=== PATIENT | male | born 1950 | race Two or more races ===

== ENCOUNTER 2022-11-24 11:33 | Emergency (ER) | payer OTHER ==
[~2022-11-24] VITALS: Ht 180.3 cm; Wt 90.3 kg
[~2022-11-24 11:33] MED LIST: ASA81 MG PO; CIPRO500 MG PO; DIOVAN320 MG PO; FLAGYL500MG PO; NORVASC10 MG PO; TOPROL XL50 M1 PO
[2022-11-24] MEDS ORDERED: PROTONIX40 MG PO (13:38)
[2022-11-24] MEDS ORDERED: LEVSIN/SL0.125 MG SL (13:38)
[2022-11-24] MEDS ORDERED: CIPRO500 MG PO (13:38)
[2022-11-24] MEDS ORDERED: METRONIDAZOLE500 MG PO (13:38)
== END 2022-11-24 14:43 | disposition home or self-care (01) ==
LOC: ER 11:33
DX: K57.92 Diverticulitis of intestine, part unspecified, without perforation or abscess without bleeding (principal)

== ENCOUNTER 2023-01-04 18:58 | Inpatient (IN) | payer OTHER ==
[~2023-01-04] VITALS: Ht 182.9 cm; Wt 103.0 kg
[~2023-01-04 18:58] MED LIST changes: +LEVSIN/SL0.125 MG SL; +METRONIDAZOLE500 MG PO; +PROTONIX40 MG PO
[2023-01-04] MEDS ORDERED: HYDRALAZINE HCL50 MG (19:17)
[2023-01-04] MEDS ORDERED: WELLBUTRIN XL300 MG (19:18)
[2023-01-04] MEDS ORDERED: LEXAPRO20 MG (19:18)
[2023-01-04] MEDS ORDERED: TOPAMAX15 MG (19:18)
[2023-01-04] MEDS ORDERED: XARELTO20 MG (19:18)
[2023-01-06] MEDS ORDERED: ISOSORBIDE MONO30 M2 (08:29)
[2023-01-06] MEDS ORDERED: IRBESARTAN300 MG (08:29)
== END 2023-01-09 18:27 | disposition home or self-care (01) | DRG 392 ==
LOC: ER 18:58 → MEDI 01-05 09:37 → SEC-K 01-05 09:37 → MEDI 01-05 10:10
PROVIDERS: ADMIT Internal Medicine; ATTEND Internal Medicine
PROC: BW21ZZZ Computerized Tomography (CT Scan) of Abdomen and Pelvis (ICD-10-PCS; 2023-01-05)
PROC: 02HV33Z Insertion of Infusion Device into Superior Vena Cava, Percutaneous Approach (ICD-10-PCS; principal; 2023-01-08)
DX: K57.32 Diverticulitis of large intestine without perforation or abscess without bleeding (principal); N39.0 Urinary tract infection, site not specified; N17.9 Acute kidney failure, unspecified; B96.20 Unspecified Escherichia coli [E. coli] as the cause of diseases classified elsewhere; B96.6 Bacteroides fragilis [B. fragilis] as the cause of diseases classified elsewhere; I44.7 Left bundle-branch block, unspecified; I10 Essential (primary) hypertension; Z85.46 Personal history of malignant neoplasm of prostate

== ENCOUNTER 2023-07-11 06:40 | Inpatient (IN) | payer OTHER ==
[~2023-07-11] VITALS: Ht 172.7 cm; Wt 113.4 kg
[~2023-07-11 06:40] MED LIST changes: +HYDRALAZINE HCL50 MG; +IRBESARTAN300 MG; +ISOSORBIDE MONO30 M2; +LEXAPRO20 MG; +TOPAMAX15 MG; +WELLBUTRIN XL300 MG; +XARELTO20 MG
[2023-07-11 09:07] LABS: HEMATOCRIT 45.1 % (39.0-48.0); HEMOGLOBIN 14.4 g/dL (13-16.00); MEAN CELL VOLUME 85.4 fL (80.0-100.00); MEAN CORPUSCULAR HEMOGLOBIN 27.2 pg (27.00-32.0); MEAN CORPUSCULAR HGB CONC 31.9 g/dl (32.0-36.0); RED BLOOD COUNT 5.29 M/uL (4.00-6.00); RED CELL DISTRIBUTION WIDTH 16.8 % (11.5-14.5)
[2023-07-11 09:28] LABS: ALBUMIN 2.6 gm/dL (3.4-5.0); BILIRUBIN TOTAL 2.43 mg/dL (0.3-1.2); CALCIUM 9.8 mg/dL (8.5-10.1); CREATININE SERUM 2.01 mg/dL (0.70-1.30); GFR 32.63; GLOBULINA 3.1 G/DL (2.4-3.5); POTASSIUM 3.31 mEq/L (3.5-5.1); TOTAL PROTEIN 5.7 gm/dL (6.4-8.2)
[2023-07-11 09:33] LABS: ABG PH 7.477 (7.35-7.45); ABG pCO2 23.9 mmHg (35-45); BASE EXCESS -4.2 mmol/l; BICARBONATE 17.3 mmol/l (23-25); SaO2 85.9 %; allen test SATISFACTORY; o2 21 %; puncture site RADIAL LEFT
[2023-07-11 09:34] LABS: ABG PO2 47.6 mmHg (80-100)
[2023-07-11 09:54] LABS: PLATELET COUNT 124 K/uL (150-450)
[2023-07-11 11:30] LABS: INR 1.31; PARTIAL THROMBOPLASTIN TIME 27.3 SECONDS (22.0-34.0); PROTHROMBIN TIME 13.5 SECONDS (9.0-11.5)
[2023-07-11 13:43] LABS: URINE APPEARANCE Cloudy; URINE BILIRRUBIN Small (NEGATIVE); URINE BLOOD Large; URINE COLOR Orange; URINE GLUCOSE Negative (NEGATIVE); URINE LEUKOCYTE Moderate; URINE NITRATE Negative
[2023-07-11 13:47] LABS: URINE EPITHELIAL CELLS 2.7 uL (0.0-38.8); URINE WBC 532.1 uL (0.0-23.2)
[2023-07-11 13:48] LABS: URINE BACTERIA > 9821.5 uL (0.0-1933); URINE PROTEIN 300 (NEGATIVE)
[2023-07-11 17:57] LABS: ABG PH 7.429 (7.35-7.45); ABG pCO2 30.6 mmHg (35-45)
[2023-07-11 17:59] LABS: ABG PO2 57.1 mmHg (80-100); BASE EXCESS -3.3 mmol/l; BICARBONATE 19.8 mmol/l (23-25); SaO2 89.9 %; Tco2 20.7 mmol/l; allen test SATISFACTORY; o2 21 %; puncture site RADIAL RIGHT
[2023-07-11 22:37] LABS: ABG PH 7.334 (7.35-7.45); BASE EXCESS -6.7 mmol/l; BICARBONATE 18.2 mmol/l (23-25); SaO2 99.7 %; Tco2 19.3 mmol/l
[2023-07-11 23:21] LABS: allen test SATISFACTORY; o2 100 %; puncture site RADIAL RIGHT
[2023-07-12 06:30] LABS: ABG PH 7.376 (7.35-7.45); ABG PO2 237.1 mmHg (80-100); ABG pCO2 30.9 mmHg (35-45); BASE EXCESS -6.2 mmol/l; BICARBONATE 17.7 mmol/l (23-25); SaO2 99.8 %; Tco2 18.6 mmol/l
[2023-07-12 07:21] LABS: INR 1.6
[2023-07-12 07:27] LABS: HEMOGLOBIN 12.2 g/dL (13-16.00); MEAN CELL VOLUME 85.1 fL (80.0-100.00); MEAN CORPUSCULAR HEMOGLOBIN 27.4 pg (27.00-32.0); MEAN CORPUSCULAR HGB CONC 32.1 g/dl (32.0-36.0); RED BLOOD COUNT 4.46 M/uL (4.00-6.00); RED CELL DISTRIBUTION WIDTH 17.2 % (11.5-14.5)
[2023-07-12 07:28] LABS: URINE APPEARANCE Turbid; URINE BILIRRUBIN Moderate (NEGATIVE); URINE BLOOD Large; URINE COLOR Orange; URINE GLUCOSE Negative (NEGATIVE); URINE LEUKOCYTE Large; URINE NITRATE Positive
[2023-07-12 07:30] LABS: PLATELET COUNT 121 K/uL (150-450)
[2023-07-12 07:31] LABS: URINE RBC 5498.4 uL (0.0-20.8)
[2023-07-12 07:45] LABS: ALBUMIN 2.1 gm/dL (3.4-5.0); BILIRUBIN TOTAL 0.74 mg/dL (0.3-1.2); CALCIUM 7.8 mg/dL (8.5-10.1); CREATININE SERUM 3.41 mg/dL (0.70-1.30); GFR 17.73; GLOBULINA 2.5 G/DL (2.4-3.5); POTASSIUM 4.48 mEq/L (3.5-5.1); TOTAL PROTEIN 4.6 gm/dL (6.4-8.2)
[2023-07-12 07:54] LABS: PROTHROMBIN TIME 16.2 SECONDS (9.0-11.5)
[2023-07-12 08:08] LABS: allen test SATISFACTORY; o2 70 %; puncture site RADIAL RIGHT
[2023-07-12 08:30] LABS: URINE BACTERIA > 9821.5 uL (0.0-1933); URINE EPITHELIAL CELLS > 201.7 uL (0.0-38.8); URINE PROTEIN 300 (NEGATIVE); URINE WBC > 5548.3 uL (0.0-23.2)
[2023-07-12 11:10] LABS: ABG PH 7.429 (7.35-7.45); ABG PO2 77.7 mmHg (80-100); ABG pCO2 25.4 mmHg (35-45); BICARBONATE 16.4 mmol/l (23-25); SaO2 95.5 %; Tco2 17.2 mmol/l
[2023-07-12 11:12] LABS: allen test SATISFACTORY; o2 50 %; puncture site RADIAL RIGHT
[2023-07-13 06:57] LABS: HEMATOCRIT 37.3 % (39.0-48.0); HEMOGLOBIN 11.9 g/dL (13-16.00); MEAN CELL VOLUME 84.9 fL (80.0-100.00); MEAN CORPUSCULAR HEMOGLOBIN 27.1 pg (27.00-32.0); PLATELET COUNT 91 K/uL (150-450); RED BLOOD COUNT 4.39 M/uL (4.00-6.00); RED CELL DISTRIBUTION WIDTH 17.2 % (11.5-14.5)
[2023-07-13 07:35] LABS: BILIRUBIN TOTAL 0.72 mg/dL (0.3-1.2); CALCIUM 8.6 mg/dL (8.5-10.1); CREATININE SERUM 2.18 mg/dL (0.70-1.30); GFR 29.72; GLOBULINA 2.5 G/DL (2.4-3.5); POTASSIUM 3.98 mEq/L (3.5-5.1); TOTAL PROTEIN 4.5 gm/dL (6.4-8.2)
[2023-07-16 06:50] LABS: HEMATOCRIT 36.5 % (39.0-48.0); HEMOGLOBIN 11.9 g/dL (13-16.00); MEAN CELL VOLUME 84.7 fL (80.0-100.00); MEAN CORPUSCULAR HEMOGLOBIN 27.6 pg (27.00-32.0); MEAN CORPUSCULAR HGB CONC 32.6 g/dl (32.0-36.0); RED BLOOD COUNT 4.31 M/uL (4.00-6.00); RED CELL DISTRIBUTION WIDTH 16.7 % (11.5-14.5)
[2023-07-16 06:59] LABS: PLATELET COUNT 107 K/uL (150-450)
[2023-07-16 07:01] LABS: BILIRUBIN TOTAL 0.52 mg/dL (0.3-1.2); CALCIUM 8.9 mg/dL (8.5-10.1); CREATININE SERUM 1.01 mg/dL (0.70-1.30); GFR 72.21; GLOBULINA 2.5 G/DL (2.4-3.5); POTASSIUM 4.1 mEq/L (3.5-5.1); TOTAL PROTEIN 4.5 gm/dL (6.4-8.2)
[2023-07-16] MEDS ORDERED: TAMS0.4C PO (14:55)
[2023-07-16] MEDS ORDERED: ISOSORBIDE MONO30 MG PO (14:56)
[2023-07-16] MEDS ORDERED: TOPROL XL25 M1 PO (14:56)
[2023-07-16] MEDS ORDERED: AVAPRO300 MG PO (14:56)
[2023-07-16] MEDS ORDERED: WELLBUTRIN XL300 MG PO (14:57)
[2023-07-16] MEDS ORDERED: HYDRALAZINE HCL50 MG PO (14:57)
[2023-07-16] MEDS ORDERED: PROTONIX40 MG PO (14:58)
[2023-07-16] MEDS ORDERED: LEXAPRO20 MG PO (14:58)
[2023-07-16] MEDS ORDERED: FINASTERIDE5 MG PO (14:58)
[2023-07-17 08:22] LABS: ABG PH 7.449 (7.35-7.45); ABG PO2 80.8 mmHg (80-100); ABG pCO2 32.2 mmHg (35-45); BASE EXCESS -1.2 mmol/l; SaO2 96.4 %
[2023-07-17 08:23] LABS: BICARBONATE 21.8 mmol/l (23-25); Tco2 22.8 mmol/l; allen test SATISFACTORY; o2 21 %; puncture site RADIAL RIGHT
[2023-07-20 06:31] LABS: PH,URINE 5.5 (5.0-8.0); URINE APPEARANCE Clear; URINE BILIRRUBIN Negative (NEGATIVE); URINE BLOOD Large; URINE COLOR Yellow; URINE GLUCOSE Negative (NEGATIVE); URINE LEUKOCYTE Negative; URINE NITRATE Negative; URINE PROTEIN Trace (NEGATIVE); URINE UROBILINOGEN 0.2 E.U./dl
[2023-07-20 06:36] LABS: URINE BACTERIA 56.7 uL (0.0-1933); URINE EPITHELIAL CELLS 6.9 uL (0.0-38.8); URINE RBC 551.4 uL (0.0-20.8); URINE WBC 22.6 uL (0.0-23.2)
[2023-07-21] MEDS ORDERED: CARDURA1 MG PO (15:52)
== END 2023-07-21 21:29 | disposition home or self-care (01) | DRG 871 ==
LOC: ER 06:40 → ICU-2 16:39 → O/R 07-12 07:26 → ICU 07-12 21:01 → MEDJ 07-14 18:14
PROVIDERS: General Practice; Internal Medicine; Internal Medicine Pulmonary Disease; Specialist; Student in an Organized Health Care Education/Training Program; Urology; ADMIT Internal Medicine; ATTEND Internal Medicine
PROC: 3E0K8GC Introduction of Other Therapeutic Substance into Genitourinary Tract, Via Natural or Artificial Opening Endoscopic (ICD-10-PCS; 2023-07-11)
PROC: 0T7D8DZ Dilation of Urethra with Intraluminal Device, Via Natural or Artificial Opening Endoscopic (ICD-10-PCS; 2023-07-11)
PROC: 0BH18EZ Insertion of Endotracheal Airway into Trachea, Via Natural or Artificial Opening Endoscopic (ICD-10-PCS; 2023-07-11)
PROC: 5A1935Z Respiratory Ventilation, Less than 24 Consecutive Hours (ICD-10-PCS; 2023-07-11)
PROC: 0TJB8ZZ Inspection of Bladder, Via Natural or Artificial Opening Endoscopic (ICD-10-PCS; principal; 2023-07-11 18:00)
DX: A41.9 Sepsis, unspecified organism (principal); R65.21 Severe sepsis with septic shock; N20.1 Calculus of ureter; N39.0 Urinary tract infection, site not specified; N17.9 Acute kidney failure, unspecified; J98.11 Atelectasis; K57.90 Diverticulosis of intestine, part unspecified, without perforation or abscess without bleeding; I10 Essential (primary) hypertension; R79.89 Other specified abnormal findings of blood chemistry; B96.20 Unspecified Escherichia coli [E. coli] as the cause of diseases classified elsewhere; R09.02 Hypoxemia

== ENCOUNTER 2023-08-09 14:48 | Inpatient (IN) | payer OTHER ==
[~2023-08-09] VITALS: Ht 182.9 cm; Wt 99.8 kg
[~2023-08-09 14:48] MED LIST changes: +AVAPRO300 MG PO; +CARDURA1 MG PO; +FINASTERIDE5 MG PO; +HYDRALAZINE HCL50 MG PO; +ISOSORBIDE MONO30 MG PO; +LEXAPRO20 MG PO; +TAMS0.4C PO; +TOPROL XL25 M1 PO; +WELLBUTRIN XL300 MG PO
[2023-08-09 17:13] LABS: HEMATOCRIT 37.6 % (39.0-48.0); HEMOGLOBIN 12.1 g/dL (13-16.00); MEAN CORPUSCULAR HEMOGLOBIN 27.4 pg (27.00-32.0); MEAN CORPUSCULAR HGB CONC 32.3 g/dl (32.0-36.0); PLATELET COUNT 133 K/uL (150-450); RED BLOOD COUNT 4.43 M/uL (4.00-6.00); RED CELL DISTRIBUTION WIDTH 17.4 % (11.5-14.5)
[2023-08-09 17:27] LABS: ALBUMIN 2.5 gm/dL (3.4-5.0); BILIRUBIN TOTAL 1.29 mg/dL (0.3-1.2); CALCIUM 9.6 mg/dL (8.5-10.1); CREATININE SERUM 1.2 mg/dL (0.70-1.30); GFR 59.18; GLOBULINA 2.7 G/DL (2.4-3.5); POTASSIUM 3.6 mEq/L (3.5-5.1); TOTAL PROTEIN 5.2 gm/dL (6.4-8.2)
[2023-08-09 17:29] LABS: INR 1.76
[2023-08-09 17:30] LABS: PH,URINE 5.5 (5.0-8.0); URINE APPEARANCE Turbid; URINE BILIRRUBIN Small (NEGATIVE); URINE BLOOD Large; URINE COLOR Orange; URINE GLUCOSE Negative (NEGATIVE); URINE LEUKOCYTE Large; URINE NITRATE Positive
[2023-08-09 17:33] LABS: PROTHROMBIN TIME 17.7 SECONDS (9.0-11.5)
[2023-08-09 17:33] LABS: URINE EPITHELIAL CELLS 11.2 uL (0.0-38.8)
[2023-08-09 17:34] LABS: PARTIAL THROMBOPLASTIN TIME 41.2 SECONDS (22.0-34.0)
[2023-08-09 17:35] LABS: URINE BACTERIA > 9821.5 uL (0.0-1933); URINE PROTEIN 100 (NEGATIVE); URINE RBC > 10558.9 uL (0.0-20.8)
[2023-08-09 18:00] LABS: ABG PH 7.463 (7.35-7.45); ABG PO2 74.5 mmHg (80-100); ABG pCO2 32.1 mmHg (35-45); BASE EXCESS -0.4 mmol/l; BICARBONATE 22.5 mmol/l (23-25); SaO2 95.7 %; Tco2 23.5 mmol/l; allen test SATISFACTORY; o2 21 %; puncture site RADIAL RIGHT
[2023-08-09 23:31] LABS: CHOL HDL RATIO 2.9 (0-5.0)
[2023-08-10 14:49] LABS: HEMATOCRIT 39.1 % (39.0-48.0); HEMOGLOBIN 12.8 g/dL (13-16.00); MEAN CORPUSCULAR HEMOGLOBIN 27.9 pg (27.00-32.0); MEAN CORPUSCULAR HGB CONC 32.8 g/dl (32.0-36.0); PLATELET COUNT 152 K/uL (150-450); RED CELL DISTRIBUTION WIDTH 17.7 % (11.5-14.5)
[2023-08-10 15:03] LABS: ERYTHROCYTE SEDIMENTATION RATE 33 mm/hr
[2023-08-10 15:15] LABS: ALBUMIN 2.6 gm/dL (3.4-5.0); CALCIUM 9.7 mg/dL (8.5-10.1); CREATININE SERUM 1.39 mg/dL (0.70-1.30); GFR 49.95; GLOBULINA 2.8 G/DL (2.4-3.5); POTASSIUM 3.8 mEq/L (3.5-5.1); TOTAL PROTEIN 5.4 gm/dL (6.4-8.2)
[2023-08-13 07:41] LABS: HEMATOCRIT 35.5 % (39.0-48.0); HEMOGLOBIN 11.7 g/dL (13-16.00); MEAN CELL VOLUME 83.8 fL (80.0-100.00); MEAN CORPUSCULAR HEMOGLOBIN 27.7 pg (27.00-32.0); PLATELET COUNT 134 K/uL (150-450); RED BLOOD COUNT 4.23 M/uL (4.00-6.00); RED CELL DISTRIBUTION WIDTH 17.4 % (11.5-14.5)
[2023-08-13 08:19] LABS: ALBUMIN 2.3 gm/dL (3.4-5.0); BILIRUBIN TOTAL 0.49 mg/dL (0.3-1.2); CALCIUM 9.9 mg/dL (8.5-10.1); CREATININE SERUM 0.98 mg/dL (0.70-1.30); GFR 74.77; GLOBULINA 2.6 G/DL (2.4-3.5); POTASSIUM 3.79 mEq/L (3.5-5.1); TOTAL PROTEIN 4.9 gm/dL (6.4-8.2)
[2023-08-15 11:29] LABS: URINE APPEARANCE Cloudy; URINE BILIRRUBIN Negative (NEGATIVE); URINE BLOOD Large; URINE COLOR Yellow; URINE GLUCOSE Negative (NEGATIVE); URINE LEUKOCYTE Small; URINE NITRATE Negative; URINE PROTEIN Trace (NEGATIVE); URINE UROBILINOGEN 0.2 E.U./dl
[2023-08-15 11:30] LABS: URINE BACTERIA 51.6 uL (0.0-1933); URINE EPITHELIAL CELLS 11.7 uL (0.0-38.8); URINE WBC 107.5 uL (0.0-23.2)
[2023-08-15 15:12] LABS: HEMATOCRIT 37.2 % (39.0-48.0); MEAN CELL VOLUME 85.7 fL (80.0-100.00); MEAN CORPUSCULAR HEMOGLOBIN 27.6 pg (27.00-32.0); MEAN CORPUSCULAR HGB CONC 32.2 g/dl (32.0-36.0); PLATELET COUNT 163 K/uL (150-450); RED BLOOD COUNT 4.34 M/uL (4.00-6.00); RED CELL DISTRIBUTION WIDTH 17.3 % (11.5-14.5)
[2023-08-15 15:45] LABS: ALBUMIN 2.5 gm/dL (3.4-5.0); BILIRUBIN TOTAL 0.37 mg/dL (0.3-1.2); CALCIUM 9.7 mg/dL (8.5-10.1); CREATININE SERUM 1.02 mg/dL (0.70-1.30); GFR 71.39; GLOBULINA 2.8 G/DL (2.4-3.5); POTASSIUM 3.3 mEq/L (3.5-5.1); TOTAL PROTEIN 5.3 gm/dL (6.4-8.2)
[2023-08-17 07:16] LABS: HEMATOCRIT 35.5 % (39.0-48.0); HEMOGLOBIN 11.7 g/dL (13-16.00); MEAN CELL VOLUME 85.2 fL (80.0-100.00); MEAN CORPUSCULAR HEMOGLOBIN 28.1 pg (27.00-32.0); PLATELET COUNT 166 K/uL (150-450); RED BLOOD COUNT 4.17 M/uL (4.00-6.00); RED CELL DISTRIBUTION WIDTH 17.8 % (11.5-14.5)
[2023-08-17 07:43] LABS: ALBUMIN 2.5 gm/dL (3.4-5.0); BILIRUBIN TOTAL 0.37 mg/dL (0.3-1.2); CALCIUM 10.1 mg/dL (8.5-10.1); CREATININE SERUM 0.98 mg/dL (0.70-1.30); GFR 74.77; GLOBULINA 2.9 G/DL (2.4-3.5); POTASSIUM 3.8 mEq/L (3.5-5.1); TOTAL PROTEIN 5.4 gm/dL (6.4-8.2)
[2023-08-17 07:50] LABS: ERYTHROCYTE SEDIMENTATION RATE 15 mm/hr
[2023-08-17 07:56] LABS: C-REACTIVE PROTEIN 0.29 MG/DL (0.00-0.29)
[2023-08-18 16:31] LABS: INR 1.13; PARTIAL THROMBOPLASTIN TIME 30.9 SECONDS (22.0-34.0); PROTHROMBIN TIME 11.8 SECONDS (9.0-11.5)
[2023-08-24] MEDS ORDERED: WELLBUTRIN SR100 MG PO (14:36)
== END 2023-08-21 17:16 | disposition home or self-care (01) | DRG 872 ==
LOC: ER 14:48 → MEDJ 22:31
PROVIDERS: General Practice; Internal Medicine; Internal Medicine Infectious Disease; Internal Medicine Nephrology; ADMIT Internal Medicine; ATTEND Internal Medicine
PROC: 02HV33Z Insertion of Infusion Device into Superior Vena Cava, Percutaneous Approach (ICD-10-PCS; principal; 2023-08-14)
PROC: BW21YZZ Computerized Tomography (CT Scan) of Abdomen and Pelvis using Other Contrast (ICD-10-PCS; 2023-08-14)
DX: A41.9 Sepsis, unspecified organism (principal); K57.32 Diverticulitis of large intestine without perforation or abscess without bleeding; N17.9 Acute kidney failure, unspecified; N39.0 Urinary tract infection, site not specified; N20.1 Calculus of ureter; N13.30 Unspecified hydronephrosis; G47.33 Obstructive sleep apnea (adult) (pediatric); B96.20 Unspecified Escherichia coli [E. coli] as the cause of diseases classified elsewhere; I10 Essential (primary) hypertension; Z20.822 Contact with and (suspected) exposure to COVID-19; E78.5 Hyperlipidemia, unspecified

== ENCOUNTER 2023-08-26 09:09 | Day surgery (SDC) | payer OTHER ==
[~2023-08-26 09:09] MED LIST changes: +WELLBUTRIN SR100 MG PO
== END 2023-08-26 21:30 | disposition home or self-care (01) ==
LOC: CIR.AMB 09:09
PROVIDERS: ATTEND Urology
DX: N20.1 Calculus of ureter (principal); Z20.822 Contact with and (suspected) exposure to COVID-19; E78.5 Hyperlipidemia, unspecified; I10 Essential (primary) hypertension

== ENCOUNTER 2023-11-24 15:09 | Outpatient (CLI) | payer OTHER | END 2023-11-24 15:11 | disposition home or self-care (01) | LOC: RAD 15:09 | PROVIDERS: ATTEND Urology | DX: N20.0 Calculus of kidney (principal); N20.1 Calculus of ureter; Z88.8 Allergy status to other drugs, medicaments and biological substances ==

== ENCOUNTER 2023-12-12 21:58 | Emergency (ER) | payer OTHER ==
[~2023-12-12] VITALS: Ht 182.9 cm; Wt 106.6 kg
[2023-12-12] MEDS ORDERED: ONDANSETRON HCL 2 MG/ML VIAL IV ONE (22:45)
[2023-12-12] MEDS ORDERED: FAMOTIDINE/PF 20 MG/2 ML VIAL IV ONE (22:45)
[2023-12-12] MEDS ORDERED: 0.9 % SODIUM CHLORIDE 500 ML IV SCH (22:45)
[2023-12-12 23:09] LABS: HEMATOCRIT 40.9 % (39.0-48.0); HEMOGLOBIN 13.2 g/dL (13-16.00); MEAN CELL VOLUME 79.7 fL (80.0-100.00); MEAN CORPUSCULAR HEMOGLOBIN 25.6 pg (27.00-32.0); MEAN CORPUSCULAR HGB CONC 32.1 g/dl (32.0-36.0); PLATELET COUNT 153 K/uL (150-450); RED BLOOD COUNT 5.13 M/uL (4.00-6.00)
[2023-12-12 23:11] LABS: URINE APPEARANCE Clear; URINE BILIRRUBIN Negative (NEGATIVE); URINE BLOOD Negative; URINE COLOR Yellow; URINE GLUCOSE Negative (NEGATIVE); URINE LEUKOCYTE Negative; URINE NITRATE Negative; URINE PROTEIN Negative (NEGATIVE); URINE UROBILINOGEN 0.2 E.U./dl
[2023-12-12 23:14] LABS: URINE BACTERIA 15.1 uL (0.0-1933); URINE EPITHELIAL CELLS 6.7 uL (0.0-38.8); URINE RBC 32.6 uL (0.0-20.8); URINE WBC 10.8 uL (0.0-23.2)
[2023-12-12 23:23] LABS: INR 1.13; PARTIAL THROMBOPLASTIN TIME 24.9 SECONDS (22.0-34.0); PROTHROMBIN TIME 11.8 SECONDS (9.0-11.5)
[2023-12-12 23:25] LABS: CALCIUM 9.9 mg/dL (8.5-10.1); CREATININE SERUM 1.55 mg/dL (0.70-1.30); GFR 44.05; POTASSIUM 3.67 mEq/L (3.5-5.1)
== END 2023-12-13 01:37 | disposition home or self-care (01) ==
LOC: ER 21:58
PROVIDERS: General Practice
DX: K30 Functional dyspepsia (principal); R11.10 Vomiting, unspecified; R10.9 Unspecified abdominal pain; I10 Essential (primary) hypertension; Z88.8 Allergy status to other drugs, medicaments and biological substances
CPT/HCPCS: 36415; 74176; 96365; 96366; 99284; J2405; J3490; J7042

== ENCOUNTER 2024-03-19 16:12 | Emergency (ER) | payer OTHER ==
[~2024-03-19] VITALS: Ht 182.9 cm; Wt 108.9 kg
[2024-03-19] MEDS ORDERED: ACETAMINOPHEN 500 MG GEL..CAP PO ONE ×2 (17:15→17:22)
[2024-03-19] MEDS ORDERED: 0.9 % SODIUM CHLORIDE 1,000 ML IV SCH (17:30)
[2024-03-19 17:51] LABS: HEMATOCRIT 37.4 % (39.0-48.0); HEMOGLOBIN 12.4 g/dL (13-16.00); MEAN CELL VOLUME 81.5 fL (80.0-100.00); MEAN CORPUSCULAR HEMOGLOBIN 26.9 pg (27.00-32.0); MEAN CORPUSCULAR HGB CONC 33.1 g/dl (32.0-36.0); PLATELET COUNT 139 K/uL (150-450); RED BLOOD COUNT 4.59 M/uL (4.00-6.00)
[2024-03-19 18:10] LABS: ALBUMIN 2.4 gm/dL (3.4-5.0); BILIRUBIN TOTAL 0.58 mg/dL (0.3-1.2); CALCIUM 9.7 mg/dL (8.5-10.1); CREATININE SERUM 1.15 mg/dL (0.70-1.30); GFR 62.16; POTASSIUM 3.89 mEq/L (3.5-5.1); TOTAL PROTEIN 5.4 gm/dL (6.4-8.2)
[2024-03-19 18:38] LABS: PH,URINE 6.5 (5.0-8.0); URINE APPEARANCE Cloudy; URINE BILIRRUBIN Negative (NEGATIVE); URINE BLOOD Trace; URINE COLOR Yellow; URINE GLUCOSE Negative (NEGATIVE); URINE LEUKOCYTE Large; URINE NITRATE Positive; URINE PROTEIN 30 (NEGATIVE); URINE UROBILINOGEN 0.2 E.U./dl
[2024-03-19 18:43] LABS: URINE EPITHELIAL CELLS 3.7 uL (0.0-38.8); URINE RBC 11.2 uL (0.0-20.8); URINE WBC 1532.3 uL (0.0-23.2)
[2024-03-19 19:06] LABS: URINE BACTERIA > 9821.5 uL (0.0-1933)
[2024-03-19] MEDS ORDERED: CIPROFLOXACIN IN 5 % DEXTROSE 400 MG/200 ML PIGGYBAG IV ONE ×2 (20:30→20:31)
[2024-03-19] MEDS ORDERED: METROnidazole 500 MG TABLET PO ONE ×2 (20:31→20:45)
== END 2024-03-19 21:13 | disposition home or self-care (01) ==
LOC: ER 16:12
PROVIDERS: Emergency Medicine
DX: N39.0 Urinary tract infection, site not specified (principal); R50.9 Fever, unspecified; Z20.822 Contact with and (suspected) exposure to COVID-19; B96.29 Other Escherichia coli [E. coli] as the cause of diseases classified elsewhere; Z16.11 Resistance to penicillins
CPT/HCPCS: 36415; 71045; 96365; 96366; 99283; J0744; J7030

== ENCOUNTER 2024-03-21 20:21 | Inpatient (IN) | payer OTHER ==
[~2024-03-21] VITALS: Ht 182.9 cm; Wt 102.1 kg
--- NOTE | 2024-03-21 20:36 | NUR ---
PTE ALERTA Y ORIENTADO X3 EL CUAL REFIERE VENIR A CAUSA DE SINTOMAS DE DOLOR ABDOMINAL PERSISTENTE Y FIEBRE. AL MOMENTO PTE REFIEREN ESTUVIERON EL SABADO PASADO EN ER KAHLIL QUE NO DOWLING TENIDO MEJORIA.
[2024-03-21] MEDS ORDERED: FAMOTIDINE/PF 20 MG in 0.9 % SODIUM CHLORIDE 8 ML IV PUSH STA (21:09)
[2024-03-21] MEDS ORDERED: PIPERACILLIN/TAZOBACTAM SODIUM 3.375 GM in 0.9 % SODIUM CHLORIDE 100 ML IV SCH (21:10)
[2024-03-21] MEDS ORDERED: KETOROLAC TROMETHAMINE 30 MG VIAL IV ONE (21:15)
[2024-03-21] MEDS ORDERED: SODIUM CHLORIDE 0.45 % 1,000 ML IV SCH (21:15)
--- NOTE | 2024-03-21 21:44 | NUR ---
RN DAVIS ORIENTA A PTE SOBRE TRATAMIENTO E INSTRUCCIONES A SEGUIR, EL REFIERE ENTENDER. SE COLECTA MUESTRAS, SE CANALIZA Y SE ADMINISTRA MEDICAMENTO MONALISA ORDEN MEDICA
[2024-03-21] MEDS ORDERED: ACETAMINOPHEN 500 MG GEL..CAP PO ONE (21:45)
[2024-03-21 23:02] LABS: HEMATOCRIT 40.1 % (39.0-48.0); HEMOGLOBIN 13.1 g/dL (13-16.00); MEAN CELL VOLUME 81.1 fL (80.0-100.00); MEAN CORPUSCULAR HEMOGLOBIN 26.4 pg (27.00-32.0); MEAN CORPUSCULAR HGB CONC 32.6 g/dl (32.0-36.0); RED BLOOD COUNT 4.95 M/uL (4.00-6.00); RED CELL DISTRIBUTION WIDTH 16.6 % (11.5-14.5)
[2024-03-21 23:13] LABS: PLATELET COUNT 123 K/uL (150-450)
[2024-03-21 23:51] LABS: ALBUMIN 2.6 gm/dL (3.4-5.0); BILIRUBIN TOTAL 0.89 mg/dL (0.3-1.2); CALCIUM 9.8 mg/dL (8.5-10.1); CREATININE SERUM 1.27 mg/dL (0.70-1.30); GFR 55.44; GLOBULINA 3.6 G/DL (2.4-3.5); POTASSIUM 3.86 mEq/L (3.5-5.1); TOTAL PROTEIN 6.2 gm/dL (6.4-8.2)
[2024-03-22 03:42] LABS: PH,URINE 5.5 (5.0-8.0); URINE APPEARANCE Turbid; URINE BILIRRUBIN Negative (NEGATIVE); URINE BLOOD Trace; URINE COLOR Dark Yellow; URINE GLUCOSE Negative (NEGATIVE); URINE LEUKOCYTE Large; URINE NITRATE Positive
[2024-03-22 03:46] LABS: URINE BACTERIA 4916.5 uL (0.0-1933); URINE EPITHELIAL CELLS 19.6 uL (0.0-38.8); URINE RBC 64.1 uL (0.0-20.8)
[2024-03-22 04:17] LABS: URINE MUCUS MODERATE; URINE PROTEIN 100 (NEGATIVE); URINE WBC > 5548.3 uL (0.0-23.2)
--- NOTE | 2024-03-22 07:48 | NUR ---
SE RECIBE PTE ALERTA Y ORIENTADO X3 EL MISMO EN VERONIQUE BAJA CON BARANDAS ELEVADAS POR SEGURIDAD. SE OBSERVA CON CANALIZAZCION EN BRAZO DERECHO #20 POR KYLEIGH BONDS .9 NSS @150ML/HR Y ROCEPHIN POR ORDEN MEDICA. SE REALIZAN VITALES Y SE DOCUMENTAN EN SISTEMA. SE EDUCA A PTE SOBRE CONTINUIDAD DE TX.
[2024-03-22] MEDS ORDERED: CIPROFLOXACIN IN 5 % DEXTROSE 200 ML IV SCH (12:04)
[2024-03-22] MEDS ORDERED: FAMOTIDINE/PF 20 MG in 0.9 % SODIUM CHLORIDE 100 ML IV SCH (12:05)
[2024-03-22] MEDS ORDERED: RIVAROXABAN 20 MG TABLET PO SCH (12:07)
[2024-03-22] MEDS ORDERED: ONDANSETRON HCL 4 MG in 0.9 % SODIUM CHLORIDE 50 ML IV PRN (12:15)
[2024-03-22] MEDS ORDERED: ENALAPRILAT DIHYDRATE 1.25 MG/ML VIAL IV PRN (12:15)
[2024-03-22] MEDS ORDERED: MORPHINE SULFATE 2 MG/ML CARTRIDGE IV PRN (12:45)
[2024-03-22] MEDS ORDERED: 0.9 % SODIUM CHLORIDE 1,000 ML IV SCH (12:45)
[2024-03-22] MEDS ORDERED: METRONIDAZOLE/SODIUM CHLORIDE 100 ML IV SCH (13:00)
[2024-03-22 13:21] LABS: INR 1.25; PARTIAL THROMBOPLASTIN TIME 32.5 SECONDS (22.0-34.0); PROTHROMBIN TIME 12.9 SECONDS (9.0-11.5)
[2024-03-22] MEDS ORDERED: ACETAMINOPHEN 500 MG GEL..CAP PO PRN (21:30)
[2024-03-23] MEDS ORDERED: MEROPENEM 500 MG/VIAL VIAL IV ONE (10:30)
[2024-03-23] MEDS ORDERED: MEROPENEM 500 MG/VIAL VIAL IV SCH (12:00)
[2024-03-23] MEDS ORDERED: PIPERACILLIN/TAZOBACTAM SODIUM 3.375 GM in 0.9 % SODIUM CHLORIDE 100 ML IV SCH (17:00)
[2024-03-23] MEDS ORDERED: CLONAZEPAM 0.5 MG TABLET PO PRN (18:15)
[2024-03-24] MEDS ORDERED: hydrALAZINE HCL 50 MG TABLET PO SCH (09:00)
[2024-03-24] MEDS ORDERED: ISOSORBIDE MONONITRATE 30 MG TABLET PO SCH (09:00)
[2024-03-24] MEDS ORDERED: IRBESARTAN 300 MG TABLET PO SCH (09:00)
[2024-03-24] MEDS ORDERED: BUPROPION HCL 150 MG TABLET.SA PO SCH (09:00)
[2024-03-24] MEDS ORDERED: METOPROLOL SUCCINATE 50 MG TAB.SR.24H PO SCH (09:00)
[2024-03-24] MEDS ORDERED: PATIENTS OWN MEDICATION (MEDICAMENTO EN PISO) PO SCH (21:00)
[2024-03-26] MEDS ORDERED: LACTOBACILLUS ACIDOPHILUS 1 CAP CAP PO SCH (09:04)
[2024-03-26 13:30] LABS: HEMATOCRIT 37.5 % (39.0-48.0); HEMOGLOBIN 12.2 g/dL (13-16.00); MEAN CELL VOLUME 80.7 fL (80.0-100.00); MEAN CORPUSCULAR HEMOGLOBIN 26.2 pg (27.00-32.0); MEAN CORPUSCULAR HGB CONC 32.5 g/dl (32.0-36.0); PLATELET COUNT 201 K/uL (150-450); RED BLOOD COUNT 4.64 M/uL (4.00-6.00); RED CELL DISTRIBUTION WIDTH 16.9 % (11.5-14.5)
[2024-03-26 13:56] LABS: ALBUMIN 2.4 gm/dL (3.4-5.0); BILIRUBIN TOTAL 0.28 mg/dL (0.3-1.2); CALCIUM 9.7 mg/dL (8.5-10.1); CREATININE SERUM 1.18 mg/dL (0.70-1.30); GFR 60.34; GLOBULINA 3.3 G/DL (2.4-3.5); POTASSIUM 4.12 mEq/L (3.5-5.1); TOTAL PROTEIN 5.7 gm/dL (6.4-8.2)
[2024-03-26 13:57] LABS: C-REACTIVE PROTEIN 3.95 MG/DL (0.00-0.29)
[2024-03-26 13:58] LABS: ERYTHROCYTE SEDIMENTATION RATE 22 mm/hr
== END 2024-03-27 15:12 | disposition home or self-care (01) | DRG 690 ==
LOC: ER 20:22 → MEDJ 03-22 12:14
PROVIDERS: General Practice; ADMIT Internal Medicine; ATTEND Internal Medicine
PROC: BW21ZZZ Computerized Tomography (CT Scan) of Abdomen and Pelvis (ICD-10-PCS; 2024-03-21)
PROC: B24BYZZ Ultrasonography of Heart with Aorta using Other Contrast (ICD-10-PCS; 2024-03-22)
PROC: 5A09457 Assistance with Respiratory Ventilation, 24-96 Consecutive Hours, Continuous Positive Airway Pressure (ICD-10-PCS; principal; 2024-03-24)
DX: N39.0 Urinary tract infection, site not specified (principal); K57.92 Diverticulitis of intestine, part unspecified, without perforation or abscess without bleeding; G47.33 Obstructive sleep apnea (adult) (pediatric); I10 Essential (primary) hypertension; D72.829 Elevated white blood cell count, unspecified

== ENCOUNTER 2024-05-19 11:45 | Inpatient (IN) | payer OTHER ==
[~2024-05-19] VITALS: Ht 182.9 cm; Wt 103.9 kg
[2024-05-19 12:02] VITALS: BP 144/70
[2024-05-26] MEDS ORDERED: CEFTRIAXONE SODIUM 2,000 MG VIAL ONE (08:19)
[2024-05-26] MEDS ORDERED: METRONIDAZOLE/SODIUM CHLORIDE 500 MG/100 ML PIGGYBACK IV ONE ×2 (08:19→17:03)
[2024-05-26] MEDS ORDERED: BUPIVACAINE HCL/MPF 0.5% 30ML VIAL ONE (09:13)
[2024-05-26] MEDS ORDERED: LIDOCAINE HCL 1%/EPINEPHRINE 20ML VIAL IJ ONE (09:13)
[2024-05-26] MEDS ORDERED: SUGAMMADEX SODIUM 200 MG/2 ML VIAL IV ONE ×2 (11:57→12:30)
[2024-05-26] MEDS ORDERED: MORPHINE SULFATE 4 MG/ML CARTRIDGE IV PRN (12:00)
[2024-05-26] MEDS ORDERED: ONDANSETRON HCL 2 MG/ML VIAL IV PRN (12:00)
[2024-05-26] MEDS ORDERED: 0.9 % SODIUM CHLORIDE 1,000 ML IV SCH (12:00)
[2024-05-26] MEDS ORDERED: OxyCODONE HCL 5 MG TABLET (ROXICODONE) PO PRN (12:00)
[2024-05-26] MEDS ORDERED: DEXTROSE 50 % IN WATER 0.5 G/ML DISP.SYRIN IV PRN (12:00)
[2024-05-26] MEDS ORDERED: HYOSCYAMINE SULFATE 0.125 MG TAB.SUBL SL SCH (13:00)
[2024-05-26] MEDS ORDERED: ACETAMINOPHEN 500 MG GEL..CAP PO SCH (14:00)
[2024-05-26] MEDS ORDERED: ENALAPRILAT DIHYDRATE 1.25 MG/ML VIAL IV PRN (14:15)
[2024-05-26 14:37] LABS: ABG PH 7.396 (7.35-7.45); ABG pCO2 41.2 mmHg (35-45)
[2024-05-26 14:38] LABS: ABG PO2 160.6 mmHg (80-100); BASE EXCESS -0.2 mmol/l; BICARBONATE 24.7 mmol/l (23-25); SaO2 99.4 %; allen test SATISFACTORY; o2 40 %; puncture site RADIAL RIGHT
[2024-05-26] MEDS ORDERED: ENALAPRILAT DIHYDRATE 1.25 MG/ML VIAL IV ONE (15:01)
[2024-05-26 15:37] LABS: ALBUMIN 2.6 gm/dL (3.4-5.0); CALCIUM 9.3 mg/dL (8.5-10.1); CREATININE SERUM 1.26 mg/dL (0.70-1.30); GFR 55.94; MAGNESIUM 1.9 mg/dL (1.8-2.4); PHOSPHOROUS 2.6 mg/dL (2.5-4.9); POTASSIUM 3.71 mEq/L (3.5-5.1)
[2024-05-26 15:45] LABS: HEMATOCRIT 39.4 % (39.0-48.0); HEMOGLOBIN 12.7 g/dL (13-16.00); MEAN CELL VOLUME 79.4 fL (80.0-100.00); MEAN CORPUSCULAR HEMOGLOBIN 25.6 pg (27.00-32.0); MEAN CORPUSCULAR HGB CONC 32.3 g/dl (32.0-36.0); PLATELET COUNT 174 K/uL (150-450); RED BLOOD COUNT 4.96 M/uL (4.00-6.00); RED CELL DISTRIBUTION WIDTH 18.1 % (11.5-14.5)
[2024-05-26] MEDS ORDERED: FUROsemide 20 MG/2 ML VIAL ONE (16:11)
[2024-05-26] MEDS ORDERED: LABETALOL HCL 100 MG/20 ML ML ONE (16:13)
[2024-05-26] MEDS ORDERED: FUROsemide 20 MG/2 ML VIAL IV STA (16:50)
[2024-05-26] MEDS ORDERED: LABETALOL HCL 20MG/4ML SYRINGE IV STA (16:50)
[2024-05-26] MEDS ORDERED: METRONIDAZOLE/SODIUM CHLORIDE 500 MG/100 ML PIGGYBACK IV SCH (17:00)
[2024-05-26] MEDS ORDERED: POLYETHYLENE GLYCOL 3350 17 GM BLIST.PACK PO SCH (17:00)
[2024-05-26] MEDS ORDERED: GABAPENTIN 300 MG CAPSULE PO SCH (17:00)
[2024-05-26 18:45] VITALS: BP 144/70
[2024-05-26 20:42] VITALS: O2SAT 98
[2024-05-26] MEDS ORDERED: hydrALAZINE HCL 50 MG TABLET PO SCH (21:00)
[2024-05-26] MEDS ORDERED: FAMOTIDINE/PF 20 MG/2 ML VIAL IV PUSH SCH (21:00)
[2024-05-26] MEDS ORDERED: BUPROPION HCL 150 MG TABLET.SA PO SCH (21:00)
[2024-05-27] VITALS (8 sets, daily range): BP systolic 144–167; BP diastolic 84–89; O2SAT 94–100
[2024-05-27 08:14] LABS: HEMATOCRIT 37.1 % (39.0-48.0); MEAN CELL VOLUME 79.7 fL (80.0-100.00); MEAN CORPUSCULAR HEMOGLOBIN 25.7 pg (27.00-32.0); MEAN CORPUSCULAR HGB CONC 32.2 g/dl (32.0-36.0); PLATELET COUNT 161 K/uL (150-450); RED BLOOD COUNT 4.66 M/uL (4.00-6.00); RED CELL DISTRIBUTION WIDTH 18.4 % (11.5-14.5)
[2024-05-27 08:20] LABS: ALBUMIN 2.4 gm/dL (3.4-5.0); CALCIUM 9.4 mg/dL (8.5-10.1); CREATININE SERUM 1.46 mg/dL (0.70-1.30); GFR 47.2; MAGNESIUM 2.2 mg/dL (1.8-2.4); PHOSPHOROUS 3.5 mg/dL (2.5-4.9); POTASSIUM 4.37 mEq/L (3.5-5.1)
[2024-05-27] MEDS ORDERED: IRBESARTAN 300 MG TABLET PO SCH (09:00)
[2024-05-27] MEDS ORDERED: LACTULOSE 20 G/30 ML BLIST.PACK PO SCH (09:00)
[2024-05-27] MEDS ORDERED: BUPROPION HCL 150 MG TABLET.SA PO SCH (09:00)
[2024-05-27] MEDS ORDERED: LEXAPRO 30 MG PO SCH (09:00)
[2024-05-27] MEDS ORDERED: METOPROLOL SUCCINATE 50 MG TAB.SR.24H PO SCH (09:00)
[2024-05-27] MEDS ORDERED: ISOSORBIDE MONONITRATE 30 MG TABLET PO SCH (12:00)
[2024-05-27] MEDS ORDERED: Cyanocobalamin/Mecobalamin 1 TAB.SL SL SCH (17:00)
[2024-05-27] MEDS ORDERED: SOD FERRIC GLUC COMPLX/SUCROSE 62.5 MG in 0.9 % SODIUM CHLORIDE 50 ML IV SCH (17:00)
[2024-05-27] MEDS ORDERED: ENOXAPARIN SODIUM 40 MG/0.4 ML SYRINGE SUBCUTANEO SCH (17:00)
[2024-05-27] MEDS ORDERED: LEXAPRO 5 MG PO SCH (21:00)
[2024-05-28 00:53] VITALS: BP 148/75; O2SAT 97
[2024-05-28 01:50] VITALS: O2SAT 96
[2024-05-28 05:47] VITALS: O2SAT 96
[2024-05-28 08:20] LABS: HEMATOCRIT 40.6 % (39.0-48.0); HEMOGLOBIN 13.1 g/dL (13-16.00); MEAN CELL VOLUME 81.3 fL (80.0-100.00); MEAN CORPUSCULAR HEMOGLOBIN 26.3 pg (27.00-32.0); MEAN CORPUSCULAR HGB CONC 32.4 g/dl (32.0-36.0); PLATELET COUNT 154 K/uL (150-450); RED BLOOD COUNT 4.99 M/uL (4.00-6.00); RED CELL DISTRIBUTION WIDTH 17.9 % (11.5-14.5)
[2024-05-28 08:28] LABS: CALCIUM 9.7 mg/dL (8.5-10.1); CREATININE SERUM 1.21 mg/dL (0.70-1.30); GFR 58.62; MAGNESIUM 1.9 mg/dL (1.8-2.4); PHOSPHOROUS 2.2 mg/dL (2.5-4.9); POTASSIUM 4.28 mEq/L (3.5-5.1)
[2024-05-28] MEDS ORDERED: ENOXAPARIN SODIUM 40 MG/0.4 ML SYRINGE SUBCUTANEO SCH (09:00)
[2024-05-28] MEDS ORDERED: NAPH,MB-DB/K PH,MBDB 1 PKT PACKET PO NR (09:15)
[2024-05-28] MEDS ORDERED: HYOSCYAMINE0.125 M1 SL (09:23)
[2024-05-28] MEDS ORDERED: TRAM1TAB98 PO (09:24)
[2024-05-28] MEDS ORDERED: PEPCID AC20 MG PO (09:24)
== END 2024-05-28 13:50 | disposition home or self-care (01) | DRG 330 ==
LOC: SURH 05-26 05:30 → O/R 05-26 05:30 → SURH 05-26 10:45 → O/R 05-27 09:48 → SURH 05-27 09:50
PROVIDERS: Internal Medicine Geriatric Medicine; ADMIT Surgery; ATTEND Surgery
PROC: 0DBP4ZZ Excision of Rectum, Percutaneous Endoscopic Approach (ICD-10-PCS; 2024-05-26)
PROC: 4A12X4Z Monitoring of Cardiac Electrical Activity, External Approach (ICD-10-PCS; 2024-05-26)
PROC: 0DTN4ZZ Resection of Sigmoid Colon, Percutaneous Endoscopic Approach (ICD-10-PCS; principal; 2024-05-26 10:45)
DX: K59.01 Slow transit constipation (principal); K57.32 Diverticulitis of large intestine without perforation or abscess without bleeding; I10 Essential (primary) hypertension

== ENCOUNTER 2024-06-20 22:24 | Emergency (ER) | payer OTHER ==
[~2024-06-20] VITALS: Ht 175.3 cm; Wt 104.3 kg
[~2024-06-20 22:24] MED LIST changes: +HYOSCYAMINE0.125 M1 SL; +PEPCID AC20 MG PO; +TRAM1TAB98 PO
[2024-06-20] MEDS ORDERED: FAMOTIDINE/PF 20 MG in 0.9 % SODIUM CHLORIDE 8 ML IV PUSH STA (23:11)
[2024-06-20 23:57] LABS: HEMATOCRIT 40.8 % (39.0-48.0); HEMOGLOBIN 13.3 g/dL (13-16.00); MEAN CELL VOLUME 79.9 fL (80.0-100.00); MEAN CORPUSCULAR HEMOGLOBIN 26.2 pg (27.00-32.0); MEAN CORPUSCULAR HGB CONC 32.7 g/dl (32.0-36.0); PLATELET COUNT 140 K/uL (150-450)
[2024-06-21] LABS: PH,URINE 5.5 (5.0-8.0); URINE APPEARANCE Clear; URINE BILIRRUBIN Negative (NEGATIVE); URINE BLOOD Large; URINE COLOR Yellow; URINE GLUCOSE Negative (NEGATIVE); URINE KETONE Negative (NEGATIVE); URINE LEUKOCYTE Moderate; URINE NITRATE Positive; URINE PROTEIN Trace (NEGATIVE); URINE UROBILINOGEN 0.2 E.U./dl
[2024-06-21 00:05] LABS: URINE BACTERIA 4419.9 uL (0.0-1933); URINE EPITHELIAL CELLS 9.5 uL (0.0-38.8); URINE RBC 2287.3 uL (0.0-20.8); URINE WBC 264.3 uL (0.0-23.2)
[2024-06-21 00:06] LABS: URINE CAST 0.15 uL (0.0-1.40)
[2024-06-21 00:24] LABS: ALBUMIN 2.8 gm/dL (3.4-5.0); BILIRUBIN TOTAL 0.67 mg/dL (0.3-1.2); CALCIUM 9.7 mg/dL (8.5-10.1); CREATININE SERUM 1.07 mg/dL (0.70-1.30); GFR 67.56; GLOBULINA 3.2 G/DL (2.4-3.5); POTASSIUM 3.93 mEq/L (3.5-5.1)
[2024-06-21] MEDS ORDERED: CEFAZOLIN SODIUM 1,000 MG VIAL IV STA (03:59)
== END 2024-06-21 04:13 | disposition home or self-care (01) ==
LOC: ER 22:24
PROVIDERS: General Practice
DX: R30.0 Dysuria (principal); R10.9 Unspecified abdominal pain; I10 Essential (primary) hypertension; Z88.8 Allergy status to other drugs, medicaments and biological substances
CPT/HCPCS: 36415; 74176; 96365; 99284; J0690

== ENCOUNTER 2024-10-16 18:21 | Inpatient (IN) | payer OTHER ==
[~2024-10-16] VITALS: Ht 182.9 cm; Wt 90.7 kg
--- NOTE | 2024-10-16 18:25 | NUR ---
SE RECIBE PACIENTE ALERTA Y ORIENTADO X3 EN COMPANIA DE KOENIG ESPOSA EN AMBULANCIA. ESPOSA REFIERE TRAER A PACIENTE POR ESCALOFRIOS, FIEBRE, DEBILIDAD. AL RADHA LOS SIGNOS VITALES PACIENTE PRESENTA 185/108MM/HG. PARAMEDICO REFIERE QUE PREVIAMENTE ADMINISTRARON VASOTEC 1.25 DOS DOSIS. S/S INICIARON EL JULITO DE HOY.
[2024-10-16] MEDS ORDERED: 0.9 % SODIUM CHLORIDE 1,000 ML IV STA (19:38)
[2024-10-16] MEDS ORDERED: ACETAMINOPHEN 500 MG GEL..CAP PO ONE ×2 (19:45→20:39)
[2024-10-16] MEDS ORDERED: ENALAPRILAT DIHYDRATE 2.5 MG/2 ML VIAL IV ONE (19:45)
[2024-10-16] MEDS ORDERED: ENALAPRILAT DIHYDRATE 1.25 MG/ML VIAL IV ONE (20:01)
[2024-10-16 20:45] LABS: HEMATOCRIT 45.1 % (39.0-48.0); MEAN CELL VOLUME 80.7 fL (80.0-100.00); MEAN CORPUSCULAR HEMOGLOBIN 26.8 pg (27.00-32.0); MEAN CORPUSCULAR HGB CONC 33.2 g/dl (32.0-36.0); PLATELET COUNT 134 K/uL (150-450); RED BLOOD COUNT 5.58 M/uL (4.00-6.00)
--- NOTE | 2024-10-16 20:49 | NUR ---
SE ORIENTA PTE Y FAMILIAR SOBRE TX, REFIERE ENTENDER Y ACEPTAR. SE LE LALI MUESTRAS DE LABORATORIO, SE CANALIZA Y SE ADMINISTRAN MEDICAMENTOS Y IV FLUIDS.
[2024-10-16 21:06] LABS: INR 1.47; PARTIAL THROMBOPLASTIN TIME 36.3 SECONDS (22.0-34.0)
[2024-10-16 21:09] LABS: BILIRUBIN TOTAL 1.07 mg/dL (0.3-1.2); CREATININE SERUM 1.25 mg/dL (0.70-1.30); GFR 56.31; GLOBULINA 2.8 G/DL (2.4-3.5); POTASSIUM 4.2 mEq/L (3.5-5.1); TOTAL PROTEIN 5.8 gm/dL (6.4-8.2)
[2024-10-16 21:30] LABS: PROTHROMBIN TIME 15.6 SECONDS (9.0-11.5)
[2024-10-16 21:33] LABS: URINE APPEARANCE Cloudy; URINE BILIRRUBIN Negative (NEGATIVE); URINE BLOOD Negative; URINE COLOR Yellow; URINE GLUCOSE Negative (NEGATIVE); URINE KETONE Negative (NEGATIVE); URINE LEUKOCYTE Large; URINE NITRATE Positive; URINE PROTEIN Trace (NEGATIVE); URINE UROBILINOGEN 0.2 E.U./dl
[2024-10-16 21:39] LABS: URINE EPITHELIAL CELLS 3.6 uL (0.0-38.8); URINE RBC 87.6 uL (0.0-20.8)
[2024-10-16 22:03] LABS: URINE BACTERIA > 9821.5 uL (0.0-1933); URINE CAST 1.17 uL (0.0-1.40)
[2024-10-16 22:06] LABS: URINE YEAST FEW /hpf
[2024-10-16] MEDS ORDERED: CEFTRIAXONE SODIUM 2,000 MG VIAL IV ONE (23:15)
[2024-10-16] MEDS ORDERED: FAMOTIDINE/PF 20 MG in 0.9 % SODIUM CHLORIDE 8 ML IV PUSH SCH (23:22)
[2024-10-16] MEDS ORDERED: 0.9 % SODIUM CHLORIDE 1,000 ML IV SCH (23:30)
[2024-10-16] MEDS ORDERED: hydrALAZINE HCL 20 MG VIAL IV ONE (23:30)
[2024-10-16] MEDS ORDERED: ACETAMINOPHEN 500 MG GEL..CAP PO PRN (23:30)
[2024-10-17] VITALS (8 sets, daily range): BP systolic 153–175; BP diastolic 87–98; O2SAT 93–98
[2024-10-17] MEDS ORDERED: ASPIRIN 81 MG TAB.CHEW PO SCH (00:47)
[2024-10-17] MEDS ORDERED: CEFTRIAXONE SODIUM 2,000 MG in 0.9 % SODIUM CHLORIDE 100 ML IV SCH (09:00)
[2024-10-17] MEDS ORDERED: BUPROPION HCL 150 MG TABLET.SA PO SCH (09:00)
[2024-10-17] MEDS ORDERED: hydrALAZINE HCL 25 MG TABLET PO SCH (09:00)
[2024-10-17] MEDS ORDERED: IRBESARTAN 300 MG TABLET PO SCH (09:00)
[2024-10-17] MEDS ORDERED: METOPROLOL SUCCINATE 50 MG TAB.SR.24H PO SCH (09:00)
[2024-10-17] MEDS ORDERED: RIVAROXABAN 20 MG TABLET PO SCH (09:00)
[2024-10-17] MEDS ORDERED: hydrALAZINE HCL 50 MG TABLET PO SCH ×2 (13:00→21:00)
[2024-10-18] VITALS (8 sets, daily range): BP systolic 144–170; BP diastolic 85–94; O2SAT 90–97
[2024-10-18] MEDS ORDERED: hydrALAZINE HCL 50 MG TABLET PO SCH ×2 (05:00→13:00)
[2024-10-18 06:05] LABS: PH,URINE 5.5 (5.0-8.0); URINE APPEARANCE Clear; URINE BILIRRUBIN Negative (NEGATIVE); URINE BLOOD Small; URINE COLOR Yellow; URINE GLUCOSE Negative (NEGATIVE); URINE KETONE Negative (NEGATIVE); URINE LEUKOCYTE Moderate; URINE NITRATE Negative; URINE PROTEIN Trace (NEGATIVE); URINE UROBILINOGEN 0.2 E.U./dl
[2024-10-18 06:09] LABS: URINE EPITHELIAL CELLS 4.5 uL (0.0-38.8); URINE RBC 166.1 uL (0.0-20.8); URINE WBC 309.3 uL (0.0-23.2)
[2024-10-18 06:11] LABS: URINE CAST 0.29 uL (0.0-1.40)
[2024-10-18 06:21] LABS: HEMATOCRIT 47.2 % (39.0-48.0); HEMOGLOBIN 15.5 g/dL (13-16.00); MEAN CELL VOLUME 82.1 fL (80.0-100.00); MEAN CORPUSCULAR HEMOGLOBIN 26.9 pg (27.00-32.0); MEAN CORPUSCULAR HGB CONC 32.8 g/dl (32.0-36.0); RED BLOOD COUNT 5.75 M/uL (4.00-6.00); RED CELL DISTRIBUTION WIDTH 19.5 % (11.5-14.5)
[2024-10-18 06:53] LABS: BILIRUBIN TOTAL 0.71 mg/dL (0.3-1.2); CREATININE SERUM 1.04 mg/dL (0.70-1.30); GFR 69.62; PHOSPHOROUS 2.3 mg/dL (2.5-4.9); POTASSIUM 4.41 mEq/L (3.5-5.1)
[2024-10-18 06:55] LABS: C-REACTIVE PROTEIN 8.42 MG/DL (0.00-0.29); PROSTATIC SPECIFIC ANTIGEN 0.459 NG/ML (0.010-4.00)
[2024-10-18 07:48] LABS: PLATELET COUNT 90 K/uL (150-450)
[2024-10-18] MEDS ORDERED: hydrALAZINE HCL 25 MG TABLET PO NR (09:00)
[2024-10-18] MEDS ORDERED: ISOSORBIDE MONONITRATE 30 MG TABLET PO SCH (09:00)
[2024-10-18] MEDS ORDERED: FAMOTIDINE/PF 20 MG in 0.9 % SODIUM CHLORIDE 8 ML IV PUSH SCH (21:00)
[2024-10-19] VITALS (9 sets, daily range): BP systolic 140–180; BP diastolic 74–99; O2SAT 94–98
[2024-10-19] MEDS ORDERED: SPIRONOLACTONE 25 MG TABLET PO SCH (09:00)
[2024-10-19 17:20] LABS: ALBUMIN 2.9 gm/dL (3.4-5.0); BILIRUBIN TOTAL 0.41 mg/dL (0.3-1.2); CALCIUM 10.1 mg/dL (8.5-10.1); CREATININE SERUM 1.4 mg/dL (0.70-1.30); GFR 49.4; GLOBULINA 3.2 G/DL (2.4-3.5); MAGNESIUM 2.2 mg/dL (1.8-2.4); PHOSPHOROUS 2.3 mg/dL (2.5-4.9); POTASSIUM 4.22 mEq/L (3.5-5.1); TOTAL PROTEIN 6.1 gm/dL (6.4-8.2)
[2024-10-20] VITALS (10 sets, daily range): BP systolic 150–166; BP diastolic 85–97; O2SAT 95–99
[2024-10-20] MEDS ORDERED: hydrALAZINE HCL 20 MG VIAL IV PRN (18:45)
[2024-10-20] MEDS ORDERED: FAMOtidine 20 MG TABLET PO SCH (21:00)
[2024-10-21] VITALS (8 sets, daily range): BP systolic 147–180; BP diastolic 60–100; O2SAT 94–97
[2024-10-21] MEDS ORDERED: AMLODIPINE BESYLATE 5 MG TABLET PO SCH (09:00)
[2024-10-22] VITALS (12 sets, daily range): BP systolic 160–190; BP diastolic 70–92; O2SAT 90–100
[2024-10-22 12:09] LABS: HEMATOCRIT 45.5 % (39.0-48.0); HEMOGLOBIN 14.8 g/dL (13-16.00); MEAN CELL VOLUME 82.1 fL (80.0-100.00); MEAN CORPUSCULAR HEMOGLOBIN 26.7 pg (27.00-32.0); MEAN CORPUSCULAR HGB CONC 32.5 g/dl (32.0-36.0); PLATELET COUNT 167 K/uL (150-450); RED BLOOD COUNT 5.54 M/uL (4.00-6.00); RED CELL DISTRIBUTION WIDTH 19.2 % (11.5-14.5)
[2024-10-22 12:41] LABS: ALBUMIN 2.9 gm/dL (3.4-5.0); BILIRUBIN TOTAL 0.45 mg/dL (0.3-1.2); CALCIUM 10.5 mg/dL (8.5-10.1); CREATININE SERUM 1.04 mg/dL (0.70-1.30); GFR 69.62; GLOBULINA 2.9 G/DL (2.4-3.5); PHOSPHOROUS 2.7 mg/dL (2.5-4.9); POTASSIUM 4.8 mEq/L (3.5-5.1); TOTAL PROTEIN 5.8 gm/dL (6.4-8.2)
[2024-10-22 15:19] LABS: PH,URINE 5.5 (5.0-8.0); URINE APPEARANCE Clear; URINE BILIRRUBIN Negative (NEGATIVE); URINE BLOOD Negative; URINE COLOR Yellow; URINE GLUCOSE Negative (NEGATIVE); URINE KETONE Negative (NEGATIVE); URINE LEUKOCYTE Negative; URINE NITRATE Negative; URINE PROTEIN Negative (NEGATIVE); URINE UROBILINOGEN 0.2 E.U./dl
[2024-10-22 15:23] LABS: URINE BACTERIA 35.4 uL (0.0-1933); URINE EPITHELIAL CELLS 3.6 uL (0.0-38.8)
[2024-10-22] MEDS ORDERED: BUMETANIDE 0.5 MG TABLET PO SCH (15:39)
[2024-10-22 15:46] LABS: URINE CAST 0.14 uL (0.0-1.40); URINE RBC 1.6 uL (0.0-20.8)
[2024-10-22] MEDS ORDERED: AMLODIPINE BESYLATE 5 MG TABLET PO SCH (17:00)
[2024-10-23] VITALS (7 sets, daily range): BP systolic 149–180; BP diastolic 79–90; O2SAT 95–100
[2024-10-23] MEDS ORDERED: AMLODIPINE BESYL5 MG PO (12:22)
[2024-10-23] MEDS ORDERED: AVAPRO300 MG PO (12:22)
[2024-10-23] MEDS ORDERED: XARELTO20 MG PO (12:22)
[2024-10-23] MEDS ORDERED: TOPROL XL50 M1 PO (12:23)
[2024-10-23] MEDS ORDERED: ISOSORBIDE MONO30 MG PO (12:23)
[2024-10-23] MEDS ORDERED: HYDRALAZINE HCL50 MG PO (12:23)
[2024-10-23] MEDS ORDERED: BUMETANIDE0.5 MG PO (12:23)
[2024-10-23] MEDS ORDERED: SPIRONOLACTONE25 MG PO (12:23)
[2024-10-23] MEDS ORDERED: WELLBUTRIN SR150 MG PO (12:23)
== END 2024-10-23 14:43 | disposition home or self-care (01) | DRG 689 ==
LOC: ER 18:21 → MEDI 23:25
PROVIDERS: Emergency Medicine; Internal Medicine; Internal Medicine Infectious Disease; ADMIT Internal Medicine; ATTEND Internal Medicine
PROC: BW21ZZZ Computerized Tomography (CT Scan) of Abdomen and Pelvis (ICD-10-PCS; principal; 2024-10-16)
PROC: B24BZZZ Ultrasonography of Heart with Aorta (ICD-10-PCS; 2024-10-16)
PROC: 4A12X4Z Monitoring of Cardiac Electrical Activity, External Approach (ICD-10-PCS; 2024-10-17)
PROC: 02HV33Z Insertion of Infusion Device into Superior Vena Cava, Percutaneous Approach (ICD-10-PCS; 2024-10-20)
DX: N39.0 Urinary tract infection, site not specified (principal); I50.23 Acute on chronic systolic (congestive) heart failure; N17.9 Acute kidney failure, unspecified; I42.9 Cardiomyopathy, unspecified; G47.33 Obstructive sleep apnea (adult) (pediatric); E78.5 Hyperlipidemia, unspecified; I44.7 Left bundle-branch block, unspecified; I11.0 Hypertensive heart disease with heart failure; B96.20 Unspecified Escherichia coli [E. coli] as the cause of diseases classified elsewhere; Z86.718 Personal history of other venous thrombosis and embolism

== ENCOUNTER 2025-01-01 12:52 | Inpatient (IN) | payer OTHER ==
[~2025-01-01] VITALS: Ht 182.9 cm; Wt 112.0 kg
[~2025-01-01 12:52] MED LIST changes: +AMLODIPINE BESYL5 MG PO; +BUMETANIDE0.5 MG PO; +SPIRONOLACTONE25 MG PO; +WELLBUTRIN SR150 MG PO; +XARELTO20 MG PO
--- NOTE | 2025-01-01 13:12 | NUR ---
LLEGA PTE AMBULANCIA CON DOLOR EPIGASTRICO Y FIEBRE. SE LE CHRISTIN S/V Y SE UBICA EN VERONIQUE CON BARADAS ELEVADA.
[2025-01-01] MEDS ORDERED: 0.9 % SODIUM CHLORIDE 500 ML IV ONE (14:45)
--- NOTE | 2025-01-01 15:32 | NUR ---
PTE ALERTA Y ORIENTADO X3, RN CASTANEDA ORIENTA SOBRE TX MEDICO,REFIERE ACEPTAR. CANALIZA Y COLECTA MUESTRAS DE LAB. PEND A REALIZAR XRAY
[2025-01-01 16:03] LABS: HEMATOCRIT 46.4 % (39.0-48.0); HEMOGLOBIN 15.5 g/dL (13-16.00); MEAN CELL VOLUME 87.3 fL (80.0-100.00); MEAN CORPUSCULAR HEMOGLOBIN 29.2 pg (27.00-32.0); MEAN CORPUSCULAR HGB CONC 33.4 g/dl (32.0-36.0); PLATELET COUNT 146 K/uL (150-450); RED BLOOD COUNT 5.32 M/uL (4.00-6.00); RED CELL DISTRIBUTION WIDTH 17.7 % (11.5-14.5)
[2025-01-01 16:33] LABS: ALBUMIN 2.6 gm/dL (3.4-5.0); BILIRUBIN TOTAL 1.67 mg/dL (0.3-1.2); CALCIUM 10.3 mg/dL (8.5-10.1); CREATININE SERUM 1.91 mg/dL (0.70-1.30); GFR 34.52; GLOBULINA 3.6 G/DL (2.4-3.5); POTASSIUM 4.22 mEq/L (3.5-5.1); TOTAL PROTEIN 6.2 gm/dL (6.4-8.2)
[2025-01-01 16:34] LABS: INR 1.14; PARTIAL THROMBOPLASTIN TIME 28.1 SECONDS (22.0-34.0); PROTHROMBIN TIME 12.3 SECONDS (9.0-11.5)
[2025-01-01 17:03] LABS: COVID-19 AG NEGATIVE (NEGATIVE)
[2025-01-01 17:14] LABS: INFLUENZA A AG NEGATIVE (NEGATIVE)
[2025-01-01] MEDS ORDERED: CEFTRIAXONE SODIUM 2,000 MG VIAL IV ONE (17:45)
[2025-01-01] MEDS ORDERED: CEFTRIAXONE SODIUM 2,000 MG VIAL ONE (17:51)
[2025-01-01 18:00] LABS: URINE APPEARANCE Turbid; URINE BILIRRUBIN Negative (NEGATIVE); URINE BLOOD Moderate; URINE COLOR Yellow; URINE GLUCOSE Negative (NEGATIVE); URINE KETONE Negative (NEGATIVE); URINE LEUKOCYTE Large; URINE NITRATE Positive
[2025-01-01 18:04] LABS: URINE EPITHELIAL CELLS 7.9 uL (0.0-38.8); URINE RBC 276.6 uL (0.0-20.8); URINE WBC 2310.8 uL (0.0-23.2)
[2025-01-01 18:16] LABS: URINE BACTERIA > 9821.5 uL (0.0-1933); URINE CAST 0.58 uL (0.0-1.40); URINE PROTEIN 100 (NEGATIVE)
[2025-01-01] MEDS ORDERED: 0.9 % SODIUM CHLORIDE 1,000 ML IV SCH (19:30)
[2025-01-01] MEDS ORDERED: MEROPENEM 500 MG/VIAL VIAL IV SCH (19:32)
[2025-01-01] MEDS ORDERED: ACETAMINOPHEN 500 MG GEL..CAP PO PRN (19:45)
[2025-01-01] MEDS ORDERED: 0.9 % SODIUM CHLORIDE 1,000 ML IV ONE (19:45)
[2025-01-01] MEDS ORDERED: ONDANSETRON HCL 4 MG in 0.9 % SODIUM CHLORIDE 50 ML IV PRN (19:45)
[2025-01-01 21:52] LABS: INR 1.14; PROTHROMBIN TIME 12.3 SECONDS (9.0-11.5)
[2025-01-01 22:05] VITALS: BP 106/68; O2SAT 97
[2025-01-02] VITALS (9 sets, daily range): BP systolic 108–126; BP diastolic 73–82; O2SAT 91–96
[2025-01-02] MEDS ORDERED: hydrALAZINE HCL 50 MG TABLET PO SCH (09:00)
[2025-01-02] MEDS ORDERED: RIVAROXABAN 20 MG TABLET PO SCH (09:00)
[2025-01-02] MEDS ORDERED: METOPROLOL SUCCINATE 50 MG TAB.SR.24H PO SCH (09:00)
[2025-01-02] MEDS ORDERED: ISOSORBIDE MONONITRATE 30 MG TABLET PO SCH (09:00)
[2025-01-02] MEDS ORDERED: FAMOTIDINE/PF 20 MG in 0.9 % SODIUM CHLORIDE 8 ML IV PUSH SCH (09:00)
[2025-01-02 11:16] LABS: ABG PH 7.447 (7.35-7.45); ABG PO2 66.4 mmHg (80-100); ABG pCO2 32.6 mmHg (35-45); BASE EXCESS -1.2 mmol/l; SaO2 93.7 %
[2025-01-02 11:22] LABS: allen test SATISFACTORY; mode ROOM AIR; puncture site RADIAL RIGHT
[2025-01-02 11:25] LABS: o2 21 %
[2025-01-03 00:59] VITALS: O2SAT 95
[2025-01-03 01:39] VITALS: BP 124/82; O2SAT 98
[2025-01-03 04:40] VITALS: O2SAT 95
[2025-01-03 06:40] LABS: URINE APPEARANCE Cloudy; URINE BILIRRUBIN Negative (NEGATIVE); URINE BLOOD Large; URINE COLOR Yellow; URINE GLUCOSE Negative (NEGATIVE); URINE KETONE Negative (NEGATIVE); URINE LEUKOCYTE Large; URINE NITRATE Negative; URINE PROTEIN 30 (NEGATIVE); URINE UROBILINOGEN 0.2 E.U./dl
[2025-01-03 06:41] LABS: URINE BACTERIA 280.2 uL (0.0-1933); URINE CAST 1.76 uL (0.0-1.40); URINE EPITHELIAL CELLS 1.7 uL (0.0-38.8); URINE RBC 520.8 uL (0.0-20.8); URINE WBC 1486.9 uL (0.0-23.2)
[2025-01-03 09:01] LABS: HEMATOCRIT 41.6 % (39.0-48.0); HEMOGLOBIN 13.8 g/dL (13-16.00); MEAN CELL VOLUME 88.1 fL (80.0-100.00); MEAN CORPUSCULAR HEMOGLOBIN 29.3 pg (27.00-32.0); MEAN CORPUSCULAR HGB CONC 33.3 g/dl (32.0-36.0); RED BLOOD COUNT 4.72 M/uL (4.00-6.00); RED CELL DISTRIBUTION WIDTH 17.3 % (11.5-14.5)
[2025-01-03 09:12] VITALS: O2SAT 95
[2025-01-03 09:34] LABS: ALBUMIN 2.4 gm/dL (3.4-5.0); BILIRUBIN TOTAL 0.52 mg/dL (0.3-1.2); CALCIUM 9.8 mg/dL (8.5-10.1); CREATININE SERUM 1.3 mg/dL (0.70-1.30); GFR 53.81; GLOBULINA 2.9 G/DL (2.4-3.5); PHOSPHOROUS 2.6 mg/dL (2.5-4.9); POTASSIUM 4.77 mEq/L (3.5-5.1); PROSTATIC SPECIFIC ANTIGEN 0.228 NG/ML (0.010-4.00); TOTAL PROTEIN 5.3 gm/dL (6.4-8.2)
[2025-01-03 09:39] LABS: C-REACTIVE PROTEIN 9.09 MG/DL (0.00-0.29)
[2025-01-03 09:56] LABS: PLATELET COUNT 123 K/uL (150-450)
[2025-01-03 12:12] VITALS: BP 139/90
[2025-01-03 16:51] VITALS: BP 109/67; O2SAT 97
[2025-01-04] VITALS (9 sets, daily range): BP systolic 143–160; BP diastolic 82–83; O2SAT 95–96
[2025-01-04 06:56] LABS: PH,URINE 5.5 (5.0-8.0); URINE APPEARANCE Cloudy; URINE BILIRRUBIN Negative (NEGATIVE); URINE BLOOD Large; URINE COLOR Yellow; URINE GLUCOSE Negative (NEGATIVE); URINE KETONE Negative (NEGATIVE); URINE LEUKOCYTE Large; URINE NITRATE Negative; URINE PROTEIN Trace (NEGATIVE); URINE UROBILINOGEN 0.2 E.U./dl
[2025-01-04 07:01] LABS: URINE BACTERIA 438.1 uL (0.0-1933); URINE CAST 2.06 uL (0.0-1.40); URINE EPITHELIAL CELLS 3.4 uL (0.0-38.8); URINE RBC 1448.7 uL (0.0-20.8); URINE WBC 2098.1 uL (0.0-23.2)
[2025-01-04 10:18] LABS: HEMATOCRIT 41.6 % (39.0-48.0); MEAN CELL VOLUME 87.2 fL (80.0-100.00); MEAN CORPUSCULAR HEMOGLOBIN 29.3 pg (27.00-32.0); MEAN CORPUSCULAR HGB CONC 33.6 g/dl (32.0-36.0); RED BLOOD COUNT 4.78 M/uL (4.00-6.00); RED CELL DISTRIBUTION WIDTH 17.1 % (11.5-14.5)
[2025-01-04 10:26] LABS: PLATELET COUNT 129 K/uL (150-450)
[2025-01-04 10:53] LABS: ALBUMIN 2.4 gm/dL (3.4-5.0); BILIRUBIN TOTAL 0.23 mg/dL (0.3-1.2); CALCIUM 9.7 mg/dL (8.5-10.1); CREATININE SERUM 1.27 mg/dL (0.70-1.30); GFR 55.28; GLOBULINA 2.8 G/DL (2.4-3.5); POTASSIUM 4.71 mEq/L (3.5-5.1); TOTAL PROTEIN 5.2 gm/dL (6.4-8.2)
[2025-01-04] MEDS ORDERED: DEXTROSE 5 % IN WATER 1,000 ML IV SCH (11:30)
[2025-01-04] MEDS ORDERED: TAMSULOSIN HCL 0.4 MG CAP PO SCH (21:00)
[2025-01-04] MEDS ORDERED: FAMOtidine 20 MG TABLET PO SCH (21:00)
[2025-01-04] MEDS ORDERED: LOSARTAN POTASSIUM 25 MG TABLET PO SCH (23:45)
[2025-01-05] VITALS (8 sets, daily range): BP systolic 111–158; BP diastolic 70–90; O2SAT 94–98
[2025-01-05 08:34] LABS: HEMATOCRIT 40.6 % (39.0-48.0); HEMOGLOBIN 13.3 g/dL (13-16.00); MEAN CELL VOLUME 88.4 fL (80.0-100.00); MEAN CORPUSCULAR HGB CONC 32.9 g/dl (32.0-36.0); PLATELET COUNT 135 K/uL (150-450); RED CELL DISTRIBUTION WIDTH 16.9 % (11.5-14.5)
[2025-01-05 09:25] LABS: ALBUMIN 2.4 gm/dL (3.4-5.0); BILIRUBIN TOTAL 0.36 mg/dL (0.3-1.2); CALCIUM 10.1 mg/dL (8.5-10.1); CREATININE SERUM 1.15 mg/dL (0.70-1.30); GFR 61.99; GLOBULINA 2.7 G/DL (2.4-3.5); MAGNESIUM 1.9 mg/dL (1.8-2.4); PHOSPHOROUS 2.6 mg/dL (2.5-4.9); POTASSIUM 5.26 mEq/L (3.5-5.1); TOTAL PROTEIN 5.1 gm/dL (6.4-8.2)
[2025-01-05] MEDS ORDERED: AMINO ACIDS 1 EACH TABLET PO NR (14:00)
[2025-01-05] MEDS ORDERED: SODIUM POLYSTYRENE SULFONATE 30G/8 TSP PO ONE (14:00)
[2025-01-05] MEDS ORDERED: DOXAZOSIN MESYLATE 2 MG TABLET PO SCH (17:00)
[2025-01-05] MEDS ORDERED: AMINO ACIDS 1 EACH TABLET PO SCH (17:00)
[2025-01-06] VITALS (9 sets, daily range): BP systolic 124–172; BP diastolic 65–90; O2SAT 95–97
[2025-01-06] MEDS ORDERED: hydrALAZINE HCL 50 MG TABLET PO SCH (13:00)
[2025-01-07] VITALS (7 sets, daily range): BP systolic 150–171; BP diastolic 78–83; O2SAT 90–97
[2025-01-07] MEDS ORDERED: LOSARTAN POTASSIUM 25 MG TABLET PO STA (15:12)
[2025-01-07] MEDS ORDERED: COZAAR50 MG PO (15:19)
[2025-01-07] MEDS ORDERED: TOPROL XL50 M1 PO (15:19)
[2025-01-07] MEDS ORDERED: XARELTO20 MG PO (15:19)
[2025-01-07] MEDS ORDERED: HYDRALAZINE HCL50 MG PO (15:19)
[2025-01-07] MEDS ORDERED: ISOSORBIDE MONO30 MG PO (15:19)
[2025-01-07] MEDS ORDERED: DOXAZOSIN MESYLA2 MG PO (15:25)
[2025-01-07] MEDS ORDERED: DOXAZOSIN MESYLATE 2 MG TABLET PO SCH (17:00)
[2025-01-07] MEDS ORDERED: AMLODIPINE BESYLATE 10 MG TABLET PO SCH (21:00)
[2025-01-08] MEDS ORDERED: LOSARTAN POTASSIUM 50 MG TABLET PO SCH (09:00)
== END 2025-01-07 17:30 | disposition home or self-care (01) | DRG 689 ==
LOC: ER 12:52 → MEDJ 21:13
PROVIDERS: General Practice; Internal Medicine; Internal Medicine Infectious Disease; ADMIT Internal Medicine; ATTEND Internal Medicine
PROC: BW21ZZZ Computerized Tomography (CT Scan) of Abdomen and Pelvis (ICD-10-PCS; principal; 2025-01-01)
PROC: 4A12X4Z Monitoring of Cardiac Electrical Activity, External Approach (ICD-10-PCS; 2025-01-02)
PROC: 02HV33Z Insertion of Infusion Device into Superior Vena Cava, Percutaneous Approach (ICD-10-PCS; 2025-01-04)
DX: N39.0 Urinary tract infection, site not specified (principal); A41.9 Sepsis, unspecified organism; N17.9 Acute kidney failure, unspecified; E87.0 Hyperosmolality and hypernatremia; B96.20 Unspecified Escherichia coli [E. coli] as the cause of diseases classified elsewhere; I10 Essential (primary) hypertension; D69.6 Thrombocytopenia, unspecified; Z85.46 Personal history of malignant neoplasm of prostate

== ENCOUNTER 2025-01-26 22:27 | Inpatient (IN) | payer OTHER ==
[~2025-01-26] VITALS: Ht 167.6 cm; Wt 113.4 kg
[~2025-01-26 22:27] MED LIST changes: +COZAAR50 MG PO; +DOXAZOSIN MESYLA2 MG PO
--- NOTE | 2025-01-26 22:42 | NUR ---
SE RECIBE PTE ALERTA Y ORIENTADO ACOMPANADO DE FAMILIAR EN AMBULANCIA. FAMILIAR DE PTE REFIERE TRAER A PTE POR SANGRADO RECTAL GUARDADO BRILLANTE. PTE TOMANDO XARELTO 20 PO. SE MIDEN S/V A PTE, PTE CON BP MANUAL 70/44MMHG. SE UBICA A PTE EN UNIDAD DE CRITICO.
[2025-01-26] MEDS ORDERED: 0.9 % SODIUM CHLORIDE 1,000 ML IV ONE (23:00)
[2025-01-26] MEDS ORDERED: PANTOPRAZOLE SODIUM 40 MG/VIAL VIAL IV ONE (23:00)
[2025-01-26] MEDS ORDERED: NOREPINEPHRINE BITARTRATE 4 MG in DEXTROSE 5 % IN WATER 250 ML IV SCH (23:00)
[2025-01-26] MEDS ORDERED: PIPERACILLIN/TAZOBACTAM SODIUM 3.375 GM VIAL IV ONE (23:00)
--- NOTE | 2025-01-26 23:00 | NUR ---
SE RECIBE PACIENTE MASCULINO ALERTA Y ORIENTADO X3, EN AREA DE CRITICO EN LA CAMA #3 CON BARANDAS ELEVADAS. CONECTADO A MONITOR CARDIACO, OXIMETRIA DE PULSO Y CANULA NASAL A 3LT/MIN. AREA DE VENOPUNCION PATENTES Y LIBRES DE EDEMA. SE LE REALIZA CT Y PLACA MONALISA LA ORDEN MEDICA. SE OBSERVA POR CAMBIOS.
--- NOTE | 2025-01-26 23:01 | NUR ---
SE RECIBE A PACIENTE ALERTA Y ORIENTADO X3 DE AMBULANCIA EN AREA DE CRITICO. SE CONECTA A MONITOR CARDIACO Y OXIMETRIA CONTINUA. SE COLOCA CN A 3LT/MIN, TOLERANDO LA MISMA. SE EDUCA A PACIENTE SOBRE PROCESO DE CHRISTIN DE MUESTRAS Y CANALIZACION, REFIERE ENTENDER. SE EJECUTAN ORDENES BAJO MEDIDAS ASEPTICAS.
[2025-01-26] MEDS ORDERED: NOREPINEPHRINE BITARTRATE 1 MG/ML AMPUL IV ONE (23:03)
[2025-01-26] MEDS ORDERED: NOREPINEPHRINE BITARTRATE 8 MG in DEXTROSE 5 % IN WATER 250 ML IV SCH (23:15)
[2025-01-26 23:44] LABS: HEMATOCRIT 37.4 % (39.0-48.0); MEAN CELL VOLUME 88.2 fL (80.0-100.00); MEAN CORPUSCULAR HEMOGLOBIN 29.1 pg (27.00-32.0); RED BLOOD COUNT 4.25 M/uL (4.00-6.00); RED CELL DISTRIBUTION WIDTH 16.5 % (11.5-14.5)
[2025-01-26 23:50] LABS: INR 1.26; PROTHROMBIN TIME 13.5 SECONDS (9.0-11.5)
[2025-01-26 23:54] LABS: HEMOGLOBIN 12.4 g/dL (13-16.00)
[2025-01-26 23:55] LABS: ALBUMIN 2.7 gm/dL (3.4-5.0); BILIRUBIN TOTAL 0.48 mg/dL (0.3-1.2); CALCIUM 9.6 mg/dL (8.5-10.1); CREATININE SERUM 2.37 mg/dL (0.70-1.30); GFR 26.91; GLOBULINA 2.7 G/DL (2.4-3.5); PLATELET COUNT 228 K/uL (150-450); POTASSIUM 4.78 mEq/L (3.5-5.1); TOTAL PROTEIN 5.4 gm/dL (6.4-8.2)
[2025-01-27] VITALS (13 sets, daily range): BP systolic 70–124; BP diastolic 57–80; O2SAT 95–100
[2025-01-27] MEDS ORDERED: PIPERACILLIN/TAZOBACTAM SODIUM 3.375 GM VIAL IV ONE (00:09)
[2025-01-27 04:00] LABS: URINE APPEARANCE Clear; URINE BILIRRUBIN Negative (NEGATIVE); URINE BLOOD Negative; URINE COLOR Yellow; URINE GLUCOSE Negative (NEGATIVE); URINE KETONE Trace (NEGATIVE); URINE LEUKOCYTE Trace; URINE NITRATE Negative; URINE PROTEIN 30 (NEGATIVE)
[2025-01-27 04:04] LABS: URINE BACTERIA 51.4 uL (0.0-1933); URINE CAST 12.81 uL (0.0-1.40); URINE EPITHELIAL CELLS 21.6 uL (0.0-38.8); URINE RBC 8.1 uL (0.0-20.8); URINE WBC 15.9 uL (0.0-23.2)
[2025-01-27 04:39] LABS: URINE MUCUS NEGATIVE
[2025-01-27] MEDS ORDERED: 0.9 % SODIUM CHLORIDE 1,000 ML IV SCH (09:15)
[2025-01-27] MEDS ORDERED: PANTOPRAZOLE SODIUM 40 MG/VIAL VIAL IV PUSH SCH (09:24)
[2025-01-27] MEDS ORDERED: FUROsemide 20 MG/2 ML VIAL IV PRN (09:45)
[2025-01-27 10:05] LABS: COVID-19 AG NEGATIVE (NEGATIVE); INFLUENZA A AG NEGATIVE (NEGATIVE)
[2025-01-27 11:33] LABS: ob POSITIVE (NEGATIVE)
[2025-01-27 12:05] LABS: BASO % 0.8 % (0.1-1.2); EOS # 0.14 (0.04-0.54); EOS % 0.7 % (0.7-7.0); HEMATOCRIT 33.8 % (40.1-51.0); HEMOGLOBIN 11.2 g/dL (13.7-17.5); LYMPH # 3.09 (1.18-3.74); LYMPH % 15.5 % (19.3-53.1); MEAN CORPUSCULAR HEMOGLOBIN 29.2 pg (25.6-32.2); MONO # 2.24 (0.24-0.82); MONO % 11.2 % (4.7-12.5); NEUT # 13.57 (1.56-6.13); NEUT % 67.8 % (34.0-71.1); PLATELET COUNT 209 K/uL (163-369); RED BLOOD COUNT 3.84 M/uL (4.63-6.08)
[2025-01-27 12:57] LABS: CHOL HDL RATIO 4.6 (0-5.0); CREATININE SERUM 1.89 mg/dL (0.70-1.30); GFR 34.94; POTASSIUM 4.93 mEq/L (3.5-5.1)
[2025-01-27 13:09] LABS: CKMB 1.5 NG/ML (0.5-3.6)
[2025-01-27] MEDS ORDERED: NOREPINEPHRINE BITARTRATE 1 MG/ML AMPUL IV ONE (15:23)
[2025-01-27] MEDS ORDERED: MEROPENEM 500 MG/VIAL VIAL IV SCH (17:00)
[2025-01-27] MEDS ORDERED: SOD FERRIC GLUC COMPLX/SUCROSE 62.5 MG/5 ML AMPUL IV SCH (19:43)
[2025-01-27 20:17] LABS: BASO % 0.7 % (0.1-1.2); EOS # 0.18 (0.04-0.54); HEMATOCRIT 30.7 % (40.1-51.0); HEMOGLOBIN 9.9 g/dL (13.7-17.5); LYMPH # 2.97 (1.18-3.74); LYMPH % 16.8 % (19.3-53.1); MEAN CORPUSCULAR HEMOGLOBIN 28.2 pg (25.6-32.2); MONO # 2.08 (0.24-0.82); MONO % 11.8 % (4.7-12.5); NEUT # 11.84 (1.56-6.13); NEUT % 66.8 % (34.0-71.1); PLATELET COUNT 183 K/uL (163-369); RED BLOOD COUNT 3.51 M/uL (4.63-6.08); RED CELL DISTRIBUTION WIDTH 16.1 % (11.6-14.4)
[2025-01-27 20:51] LABS: CKMB 1.2 NG/ML (0.5-3.6)
[2025-01-28] MEDS ORDERED: MEROPENEM 500 MG/VIAL VIAL IV SCH (01:00)
[2025-01-28 07:28] VITALS: BP 109/73; O2SAT 98
[2025-01-28 08:51] LABS: BASO % 0.8 % (0.1-1.2); EOS # 0.32 (0.04-0.54); EOS % 2.8 % (0.7-7.0); HEMATOCRIT 32.6 % (40.1-51.0); LYMPH # 1.81 (1.18-3.74); MEAN CORPUSCULAR HEMOGLOBIN 29.6 pg (25.6-32.2); MONO # 1.35 (0.24-0.82); NEUT # 7.45 (1.56-6.13); PLATELET COUNT 153 K/uL (163-369); RED BLOOD COUNT 3.71 M/uL (4.63-6.08); RED CELL DISTRIBUTION WIDTH 15.9 % (11.6-14.4)
[2025-01-28 09:04] LABS: ERYTHROCYTE SEDIMENTATION RATE 2 mm/hr
[2025-01-28 09:10] LABS: INR 1.07; PARTIAL THROMBOPLASTIN TIME 26.7 SECONDS (22.0-34.0); PROTHROMBIN TIME 11.6 SECONDS (9.0-11.5)
[2025-01-28 09:45] LABS: ALBUMIN 2.6 gm/dL (3.4-5.0); BILIRUBIN TOTAL 0.65 mg/dL (0.3-1.2); BILIRUBIN,CONJUGATED 0.15 mg/dL (0.0-0.2); BILIRUBIN,UNCONJUGATED 0.5 mg/dL (0.0-0.6); CALCIUM 8.9 mg/dL (8.5-10.1); CHOL HDL RATIO 4.7 (0-5.0); CREATININE SERUM 1.55 mg/dL (0.70-1.30); GFR 43.93; POTASSIUM 4.79 mEq/L (3.5-5.1); PROSTATIC SPECIFIC ANTIGEN 0.4 NG/ML (0.010-4.00); T4 FREE 1.08 NG/ML (0.76-1.46); TOTAL PROTEIN 4.9 gm/dL (6.4-8.2); TSH 0.732 uIU/mL (0.358-3.74)
[2025-01-28 09:50] LABS: C-REACTIVE PROTEIN 0.61 MG/DL (0.00-0.29)
[2025-01-28 12:02] VITALS: BP 114/69; O2SAT 100
[2025-01-28 15:21] VITALS: BP 111/91; O2SAT 100
[2025-01-28 15:25] VITALS: BP 106/76; O2SAT 100
[2025-01-28 20:09] VITALS: BP 128/82; O2SAT 100
[2025-01-28 23:36] VITALS: BP 132/90; O2SAT 98
[2025-01-29] VITALS (9 sets, daily range): BP systolic 123–161; BP diastolic 69–93; O2SAT 96–100
[2025-01-29 08:51] LABS: BASO % 0.5 % (0.1-1.2); EOS # 0.26 (0.04-0.54); EOS % 3.2 % (0.7-7.0); LYMPH # 1.24 (1.18-3.74); LYMPH % 15.5 % (19.3-53.1); MEAN CORPUSCULAR HEMOGLOBIN 29.5 pg (25.6-32.2); MONO # 0.88 (0.24-0.82); NEUT # 5.41 (1.56-6.13); NEUT % 67.6 % (34.0-71.1); RED BLOOD COUNT 2.95 M/uL (4.63-6.08); RED CELL DISTRIBUTION WIDTH 15.9 % (11.6-14.4)
[2025-01-29 08:53] LABS: HEMATOCRIT 25.9 % (40.1-51.0); HEMOGLOBIN 8.7 g/dL (13.7-17.5); PLATELET COUNT 111 K/uL (163-369)
[2025-01-29] MEDS ORDERED: POLYETHYLENE GLYCOL 3350 238 GM POWDER PO NR (12:15)
[2025-01-29] MEDS ORDERED: PANTOPRAZOLE SODIUM 80 MG in 0.9 % SODIUM CHLORIDE 100 ML IV SCH (16:00)
[2025-01-29 16:05] LABS: BASO % 0.5 % (0.1-1.2); LYMPH # 1.18 (1.18-3.74); LYMPH % 11.9 % (19.3-53.1); MEAN CORPUSCULAR HEMOGLOBIN 29.1 pg (25.6-32.2); MONO # 1.03 (0.24-0.82); MONO % 10.4 % (4.7-12.5); NEUT # 7.28 (1.56-6.13); NEUT % 73.4 % (34.0-71.1); RED BLOOD COUNT 2.99 M/uL (4.63-6.08); RED CELL DISTRIBUTION WIDTH 15.7 % (11.6-14.4)
[2025-01-29 16:07] LABS: HEMATOCRIT 26.4 % (40.1-51.0)
[2025-01-29 16:08] LABS: PLATELET COUNT 114 K/uL (163-369)
[2025-01-29 16:49] LABS: HEMOGLOBIN 8.7 g/dL (13.7-17.5)
[2025-01-29 21:57] LABS: FECAL LEUKOCYTES POSITIVE (NEGATIVE); ob POSITIVE (NEGATIVE)
[2025-01-30 05:35] VITALS: BP 168/88; O2SAT 100
[2025-01-30 07:21] VITALS: BP 127/78; O2SAT 94
[2025-01-30 12:00] VITALS: BP 98/70; O2SAT 96
[2025-01-30] MEDS ORDERED: VANCOMYCIN HCL 125 MG CAPSULE PO SCH (12:00)
[2025-01-30 15:29] VITALS: BP 123/93; O2SAT 97
[2025-01-30] MEDS ORDERED: METRONIDAZOLE/SODIUM CHLORIDE 100 ML IV SCH (17:00)
[2025-01-30 17:36] LABS: BASO % 0.7 % (0.1-1.2); EOS # 0.32 (0.04-0.54); EOS % 3.1 % (0.7-7.0); HEMOGLOBIN 11.4 g/dL (13.7-17.5); LYMPH % 15.5 % (19.3-53.1); MEAN CORPUSCULAR HEMOGLOBIN 29.9 pg (25.6-32.2); MONO # 1.15 (0.24-0.82); MONO % 11.2 % (4.7-12.5); NEUT # 7.01 (1.56-6.13); RED BLOOD COUNT 3.81 M/uL (4.63-6.08); RED CELL DISTRIBUTION WIDTH 15.9 % (11.6-14.4)
[2025-01-30 17:48] LABS: PLATELET COUNT 120 K/uL (163-369)
[2025-01-30 20:22] VITALS: BP 130/83; O2SAT 98
[2025-01-30 23:28] VITALS: BP 134/80; O2SAT 97
[2025-01-31 04:00] VITALS: BP 127/72; O2SAT 95
[2025-01-31 07:31] VITALS: BP 152/89; O2SAT 100
[2025-01-31] MEDS ORDERED: fentaNYL CITRATE 50 MCG/ML AMPUL IV ONE (08:15)
[2025-01-31] MEDS ORDERED: MIDAZOLAM HCL 2 MG/2 ML VIAL IV ONE (08:15)
[2025-01-31] MEDS ORDERED: METOPROLOL TARTRATE 25 MG TABLET PO SCH (09:00)
[2025-01-31] MEDS ORDERED: BUPROPION HCL 150 MG TABLET.SA PO SCH (09:00)
[2025-01-31 12:00] VITALS: BP 128/69; O2SAT 100
[2025-01-31 15:54] VITALS: BP 128/80; O2SAT 98
[2025-01-31] MEDS ORDERED: PANTOPRAZOLE SODIUM 40 MG TABLET.DR PO SCH (17:00)
[2025-01-31 20:00] VITALS: BP 132/81; O2SAT 100
[2025-01-31 23:16] VITALS: BP 133/83; O2SAT 97
[2025-02-01 04:10] VITALS: BP 121/68; O2SAT 97
[2025-02-01 07:02] LABS: BASO % 0.6 % (0.1-1.2); EOS # 0.38 (0.04-0.54); EOS % 4.9 % (0.7-7.0); HEMATOCRIT 30.3 % (40.1-51.0); HEMOGLOBIN 9.8 g/dL (13.7-17.5); LYMPH # 1.19 (1.18-3.74); LYMPH % 15.4 % (19.3-53.1); MEAN CORPUSCULAR HEMOGLOBIN 29.3 pg (25.6-32.2); MONO # 0.85 (0.24-0.82); NEUT # 5.13 (1.56-6.13); NEUT % 66.5 % (34.0-71.1); RED BLOOD COUNT 3.34 M/uL (4.63-6.08); RED CELL DISTRIBUTION WIDTH 16.2 % (11.6-14.4)
[2025-02-01 07:22] VITALS: BP 121/68; BP 156/92; O2SAT 100
[2025-02-01 07:33] LABS: PLATELET COUNT 109 K/uL (163-369)
[2025-02-01] MEDS ORDERED: PANTOPRAZOLE SODIUM 40 MG/VIAL VIAL IV PUSH SCH (09:00)
[2025-02-01 13:26] VITALS: BP 135/64; O2SAT 100
[2025-02-01 15:14] VITALS: BP 135/81; O2SAT 98
[2025-02-01 20:00] VITALS: BP 131/89; O2SAT 97
[2025-02-01 23:26] VITALS: BP 162/98; O2SAT 97
[2025-02-02 04:00] VITALS: BP 169/88; O2SAT 97
[2025-02-02 07:22] VITALS: BP 163/85; O2SAT 97
[2025-02-02 09:33] LABS: BASO % 0.7 % (0.1-1.2); EOS # 0.35 (0.04-0.54); EOS % 4.6 % (0.7-7.0); HEMATOCRIT 30.4 % (40.1-51.0); HEMOGLOBIN 9.9 g/dL (13.7-17.5); LYMPH # 0.98 (1.18-3.74); LYMPH % 12.9 % (19.3-53.1); MEAN CORPUSCULAR HEMOGLOBIN 29.3 pg (25.6-32.2); MONO # 0.71 (0.24-0.82); MONO % 9.3 % (4.7-12.5); NEUT % 71.1 % (34.0-71.1); RED BLOOD COUNT 3.38 M/uL (4.63-6.08); RED CELL DISTRIBUTION WIDTH 16.1 % (11.6-14.4)
[2025-02-02 09:51] LABS: PLATELET COUNT 112 K/uL (163-369)
[2025-02-02 10:08] LABS: D DIMER 4.35 MG/L
[2025-02-02 12:00] VITALS: BP 166/74; O2SAT 100
[2025-02-02 16:00] VITALS: BP 151/83; O2SAT 94
[2025-02-02] MEDS ORDERED: ENOXAPARIN SODIUM 100 MG/ML SYRINGE SUBCUTANEO SCH (17:00)
[2025-02-02] MEDS ORDERED: fentaNYL CITRATE 50 MCG/ML AMPUL IV PUSH ONE (17:15)
[2025-02-02] MEDS ORDERED: MIDAZOLAM HCL 2 MG/2 ML VIAL IV ONE ×2 (17:15→17:45)
[2025-02-02] MEDS ORDERED: ENOXAPARIN SODIUM 100 MG/ML SYRINGE SUBCUTANEO NR (18:00)
[2025-02-02 20:00] VITALS: BP 148/83; O2SAT 99
[2025-02-02 23:41] VITALS: BP 131/82; O2SAT 99
[2025-02-03 04:00] VITALS: BP 157/89; O2SAT 99
[2025-02-03] MEDS ORDERED: ENOXAPARIN SODIUM 100 MG/ML SYRINGE SUBCUTANEO SCH (05:00)
[2025-02-03 07:25] LABS: BASO % 0.7 % (0.1-1.2); EOS % 4.4 % (0.7-7.0); HEMATOCRIT 30.8 % (40.1-51.0); HEMOGLOBIN 9.9 g/dL (13.7-17.5); LYMPH # 0.96 (1.18-3.74); MEAN CORPUSCULAR HEMOGLOBIN 29.1 pg (25.6-32.2); MONO # 0.73 (0.24-0.82); MONO % 10.6 % (4.7-12.5); NEUT # 4.72 (1.56-6.13); NEUT % 68.8 % (34.0-71.1); RED CELL DISTRIBUTION WIDTH 15.9 % (11.6-14.4)
[2025-02-03 07:31] VITALS: BP 164/102; O2SAT 100
[2025-02-03 07:36] LABS: PLATELET COUNT 117 K/uL (163-369)
[2025-02-03 08:09] LABS: ALBUMIN 2.3 gm/dL (3.4-5.0); BILIRUBIN TOTAL 0.42 mg/dL (0.3-1.2); CALCIUM 8.6 mg/dL (8.5-10.1); CREATININE SERUM 0.97 mg/dL (0.70-1.30); GFR 75.45; GLOBULINA 2.1 G/DL (2.4-3.5); MAGNESIUM 1.7 mg/dL (1.8-2.4); POTASSIUM 3.8 mEq/L (3.5-5.1); TOTAL PROTEIN 4.4 gm/dL (6.4-8.2)
[2025-02-03] MEDS ORDERED: ISOSORBIDE MONONITRATE 30 MG TABLET PO SCH (09:00)
[2025-02-03] MEDS ORDERED: PANTOPRAZOLE SODIUM 40 MG TABLET.DR PO SCH (09:00)
[2025-02-03] MEDS ORDERED: SPIRONOLACTONE 25 MG TABLET PO SCH (09:00)
[2025-02-03 11:56] VITALS: BP 143/94; O2SAT 100
[2025-02-03 15:04] VITALS: BP 133/75; O2SAT 97
[2025-02-03 20:00] VITALS: BP 154/90; O2SAT 98
[2025-02-03] MEDS ORDERED: 0.9 % SODIUM CHLORIDE 1,000 ML IV SCH (20:30)
[2025-02-03 21:47] VITALS: BP 159/84; O2SAT 95
[2025-02-04] VITALS (7 sets, daily range): BP systolic 147–182; BP diastolic 80–91; O2SAT 92–100
[2025-02-04] MEDS ORDERED: VANCOMYCIN HCL 125 MG CAPSULE PO SCH
[2025-02-04] MEDS ORDERED: METRONIDAZOLE/SODIUM CHLORIDE 100 ML IV SCH (01:00)
[2025-02-04 08:17] LABS: ALBUMIN 2.2 gm/dL (3.4-5.0); BILIRUBIN TOTAL 0.3 mg/dL (0.3-1.2); CALCIUM 8.7 mg/dL (8.5-10.1); CREATININE SERUM 0.99 mg/dL (0.70-1.30); GFR 73.69; POTASSIUM 3.75 mEq/L (3.5-5.1); TOTAL PROTEIN 4.2 gm/dL (6.4-8.2)
[2025-02-04 08:30] LABS: BASO % 0.6 % (0.1-1.2); EOS # 0.23 (0.04-0.54); EOS % 3.7 % (0.7-7.0); HEMATOCRIT 30.5 % (40.1-51.0); HEMOGLOBIN 9.9 g/dL (13.7-17.5); LYMPH # 0.91 (1.18-3.74); LYMPH % 14.6 % (19.3-53.1); MEAN CORPUSCULAR HEMOGLOBIN 30.2 pg (25.6-32.2); MONO % 11.2 % (4.7-12.5); NEUT % 69.1 % (34.0-71.1); RED BLOOD COUNT 3.28 M/uL (4.63-6.08); RED CELL DISTRIBUTION WIDTH 16.1 % (11.6-14.4)
[2025-02-04 08:42] LABS: PLATELET COUNT 111 K/uL (163-369)
[2025-02-04] MEDS ORDERED: METOPROLOL TARTRATE 25 MG TABLET PO SCH (09:00)
[2025-02-04] MEDS ORDERED: ISOSORBIDE MONONITRATE 30 MG TABLET PO SCH (09:00)
[2025-02-04] MEDS ORDERED: SPIRONOLACTONE 25 MG TABLET PO SCH (09:00)
[2025-02-04] MEDS ORDERED: SOD FERRIC GLUC COMPLX/SUCROSE 62.5 MG/5 ML AMPUL IV SCH (09:00)
[2025-02-04] MEDS ORDERED: BUPROPION HCL 150 MG TABLET.SA PO SCH (09:00)
[2025-02-04] MEDS ORDERED: ENOXAPARIN SODIUM 100 MG/ML SYRINGE SUBCUTANEO SCH (09:00)
[2025-02-04] MEDS ORDERED: DEXTROSE 5 % IN WATER 1,000 ML IV SCH (11:45)
[2025-02-04] MEDS ORDERED: AMLODIPINE BESYLATE 5 MG TABLET PO SCH (12:14)
[2025-02-04] MEDS ORDERED: IRBESARTAN 300 MG TABLET PO SCH (12:19)
[2025-02-04] MEDS ORDERED: AMINO ACIDS/PROTEIN HYDROLYS 30 ML BLIST.PACK PO SCH (13:00)
[2025-02-04] MEDS ORDERED: APIXABAN 5 MG TABLET PO SCH (17:00)
[2025-02-05] VITALS (8 sets, daily range): BP systolic 136–183; BP diastolic 84–96; O2SAT 90–97
[2025-02-05 08:45] LABS: ALBUMIN 2.3 gm/dL (3.4-5.0); BILIRUBIN TOTAL 0.21 mg/dL (0.3-1.2); CALCIUM 8.9 mg/dL (8.5-10.1); CREATININE SERUM 0.86 mg/dL (0.70-1.30); GFR 86.69; GLOBULINA 2.1 G/DL (2.4-3.5); MAGNESIUM 1.8 mg/dL (1.8-2.4); POTASSIUM 4.04 mEq/L (3.5-5.1); TOTAL PROTEIN 4.4 gm/dL (6.4-8.2)
[2025-02-05 09:06] LABS: BASO % 0.6 % (0.1-1.2); EOS # 0.22 (0.04-0.54); EOS % 3.2 % (0.7-7.0); HEMATOCRIT 31.5 % (40.1-51.0); HEMOGLOBIN 10.3 g/dL (13.7-17.5); LYMPH # 1.05 (1.18-3.74); LYMPH % 15.4 % (19.3-53.1); MEAN CORPUSCULAR HEMOGLOBIN 30.6 pg (25.6-32.2); MONO # 0.76 (0.24-0.82); MONO % 11.2 % (4.7-12.5); NEUT # 4.66 (1.56-6.13); NEUT % 68.6 % (34.0-71.1); RED BLOOD COUNT 3.37 M/uL (4.63-6.08); RED CELL DISTRIBUTION WIDTH 16.5 % (11.6-14.4)
[2025-02-05 09:08] LABS: PLATELET COUNT 117 K/uL (163-369)
[2025-02-05 09:19] LABS: PHOSPHOROUS 1.7 mg/dL (2.5-4.9)
[2025-02-05] MEDS ORDERED: POTASSIUM PHOS,M-BASIC-D-BASIC 3 MM/ML VIAL IV NR (13:00)
[2025-02-05] MEDS ORDERED: hydrALAZINE HCL 50 MG TABLET PO SCH (17:00)
[2025-02-05 21:07] LABS: dRVVT 47.6 sec (0.0-47.0); interp Comment: (.); ptt-la 67.1 sec (0.0-43.5)
[2025-02-06] VITALS (7 sets, daily range): BP systolic 143–170; BP diastolic 87–91; O2SAT 94–96
[2025-02-06 07:51] LABS: CALCIUM 9.1 mg/dL (8.5-10.1); CREATININE SERUM 1.01 mg/dL (0.70-1.30); GFR 72.01; PHOSPHOROUS 2.2 mg/dL (2.5-4.9); POTASSIUM 4.07 mEq/L (3.5-5.1)
[2025-02-07] VITALS (8 sets, daily range): BP systolic 151–181; BP diastolic 75–100; O2SAT 95–96
[2025-02-07] MEDS ORDERED: hydrALAZINE HCL 50 MG TABLET PO ONE (02:30)
[2025-02-07] MEDS ORDERED: hydrALAZINE HCL 20 MG VIAL IV STA (03:57)
[2025-02-07] MEDS ORDERED: hydrALAZINE HCL 20 MG VIAL IV PRN (04:00)
[2025-02-07 07:22] LABS: CALCIUM 9.3 mg/dL (8.5-10.1); CREATININE SERUM 0.87 mg/dL (0.70-1.30); GFR 85.54; POTASSIUM 4.26 mEq/L (3.5-5.1)
[2025-02-07 08:22] LABS: HEMOGLOBIN 13.2 g/dL (13.7-17.5); RED BLOOD COUNT 4.47 M/uL (4.63-6.08)
[2025-02-07 08:23] LABS: BASO % 0.7 % (0.1-1.2); EOS % 2.6 % (0.7-7.0); HEMATOCRIT 41.7 % (40.1-51.0); MEAN CORPUSCULAR HEMOGLOBIN 29.5 pg (25.6-32.2); MONO % 9.7 % (4.7-12.5); NEUT % 71.1 % (34.0-71.1); RED CELL DISTRIBUTION WIDTH 17.1 % (11.6-14.4)
[2025-02-07 08:24] LABS: EOS # 0.18 (0.04-0.54); LYMPH # 1.05 (1.18-3.74); MONO # 0.68 (0.24-0.82); NEUT # 4.96 (1.56-6.13); PLATELET COUNT 102 K/uL (163-369)
[2025-02-07] MEDS ORDERED: hydrALAZINE HCL 50 MG TABLET PO SCH (09:00)
[2025-02-07] MEDS ORDERED: PROTONIX40 MG PO (09:43)
[2025-02-07] MEDS ORDERED: ELIQUIS5 MG PO (09:44)
[2025-02-07] MEDS ORDERED: VANCOMYCIN HCL125 MG PO (09:48)
[2025-02-07] MEDS ORDERED: INTESTINEX680 M1 PO (09:48)
[2025-02-07] MEDS ORDERED: MAGNESIUM SULFATE IN WATER 50 ML IV NR (10:00)
== END 2025-02-07 13:23 | disposition home or self-care (01) | DRG 393 ==
LOC: ER 22:27 → SEC-K 01-27 09:39 → ICU 01-27 14:12 → SURH 02-03 21:46
PROVIDERS: General Practice; Internal Medicine; ADMIT Internal Medicine; ATTEND Internal Medicine
PROC: B020ZZZ Computerized Tomography (CT Scan) of Brain (ICD-10-PCS; 2025-01-26)
PROC: BW21ZZZ Computerized Tomography (CT Scan) of Abdomen and Pelvis (ICD-10-PCS; 2025-01-26)
PROC: B246ZZZ Ultrasonography of Right and Left Heart (ICD-10-PCS; 2025-01-27)
PROC: B54CZZZ Ultrasonography of Left Lower Extremity Veins (ICD-10-PCS; 2025-01-27)
PROC: 02HV33Z Insertion of Infusion Device into Superior Vena Cava, Percutaneous Approach (ICD-10-PCS; 2025-01-29)
PROC: 30243N1 Transfusion of Nonautologous Red Blood Cells into Central Vein, Percutaneous Approach (ICD-10-PCS; 2025-01-29)
PROC: 0W3P8ZZ Control Bleeding in Gastrointestinal Tract, Via Natural or Artificial Opening Endoscopic (ICD-10-PCS; principal; 2025-01-31)
PROC: B34HZZZ Ultrasonography of Right Upper Extremity Arteries (ICD-10-PCS; 2025-02-01)
PROC: B54MZZZ Ultrasonography of Right Upper Extremity Veins (ICD-10-PCS; 2025-02-01)
PROC: 0DB98ZX Excision of Duodenum, Via Natural or Artificial Opening Endoscopic, Diagnostic (ICD-10-PCS; 2025-02-02)
PROC: BD47ZZZ Ultrasonography of Gastrointestinal Tract (ICD-10-PCS; 2025-02-02)
PROC: 4A12X4Z Monitoring of Cardiac Electrical Activity, External Approach (ICD-10-PCS; 2025-02-04)
DX: K62.6 Ulcer of anus and rectum (principal); I50.21 Acute systolic (congestive) heart failure; D62 Acute posthemorrhagic anemia; K92.1 Melena; D68.69 Other thrombophilia; N17.9 Acute kidney failure, unspecified; I82.621 Acute embolism and thrombosis of deep veins of right upper extremity; I13.0 Hypertensive heart and chronic kidney disease with heart failure and stage 1 through stage 4 chronic kidney disease, or unspecified chronic kidney disease; D13.2 Benign neoplasm of duodenum; K63.5 Polyp of colon; D64.89 Other specified anemias; R59.0 Localized enlarged lymph nodes; K31.89 Other diseases of stomach and duodenum; I95.9 Hypotension, unspecified; N18.9 Chronic kidney disease, unspecified; I87.2 Venous insufficiency (chronic) (peripheral); C61 Malignant neoplasm of prostate; G47.33 Obstructive sleep apnea (adult) (pediatric); E21.3 Hyperparathyroidism, unspecified; Z79.01 Long term (current) use of anticoagulants

== ENCOUNTER 2025-05-29 06:00 | Day surgery (SDC) | payer OTHER ==
[~2025-05-29 06:00] MED LIST changes: +ELIQUIS5 MG PO; +INTESTINEX680 M1 PO; +VANCOMYCIN HCL125 MG PO
[2025-05-29] MEDS ORDERED: MIDAZOLAM HCL 2 MG/2 ML VIAL IV ONE (10:15)
[2025-05-29] MEDS ORDERED: fentaNYL CITRATE 50 MCG/ML AMPUL IV PUSH ONE (10:15)
[2025-05-29] MEDS ORDERED: DIPHENHYDRAMINE HCL 50 MG/ML VIAL 1ML IV ONE (10:15)
== END 2025-05-29 11:03 | disposition home or self-care (01) ==
LOC: AMB-ENDOS 06:00
PROVIDERS: ATTEND Internal Medicine
DX: D13.2 Benign neoplasm of duodenum (principal); K31.7 Polyp of stomach and duodenum; K21.9 Gastro-esophageal reflux disease without esophagitis; Z86.0101 Personal history of adenomatous and serrated colon polyps